=== PATIENT | female | born 1995 | race Caucasian/White ===

== ENCOUNTER 2022-07-06 04:08 | Observation (INO) | payer BC, MEDICAID, SELFPAY ==
[2022-07-06] VITALS (9 sets, daily range): BP systolic 106–165; BP diastolic 58–90; PULSE 89–118; RESP 15–31; TEMP 36.6–36.9; O2SAT 93–100
--- NOTE | 2022-07-06 | DI.US_ITS ---
APPROVED REPORT EXAM: Comprehensive 2D, Doppler, and color-flow Echocardiogram Patient Location: In-Patient Room/Bed: 205 Associate Principal: Gabrielle Stock RDCS (AE) Indications: PE, Evaluate for RV strain Other Information Study Quality: Fair. Technically limited study due to body habitus exam done bedside. Conclusion Technically limited study Mild concentric left ventricular hypertrophy. Left ventricular systolic function and wall motion tripp ears normal. EF is 58% Right ventricle is borderline dilated. Right ventricular systolic function appears normal Both atria are normal in size There is no structural or hemodynamically significant valvular disease Estimated right ventricular systolic pressure is 34 mmHg Wall motion Left Ventricle The left ventricle is normal size. The left ventricular systolic function is normal. The left ventric ular ejection fraction is within the normal range. Mild concentric left ventricular hypertrophy. Ther e is normal LV segmental wall motion. There is no ventricular septal defect visualized. LVEF is 58%. Right Ventricle Right ventricle is borderline dilated. Right ventricular systolic function is grossly normal. The RVS P is 33.8 mmHg. Atria The left atrium size is normal. The right atrium size is normal. The interatrial septum is intact wit h no evidence for an atrial septal defect. Aortic Valve The aortic valve is normal in structure. Aortic valve is trileaflet. There is no aortic valvular sten osis. No aortic regurgitation is present. Mitral Valve The mitral valve is normal in structure. No evidence of mitral valve stenosis. Trace mitral regurgita tion. Tricuspid Valve The tricuspid valve is normal in structure. There is no tricuspid valve stenosis. Trace tricuspid reg urgitation. Pulmonic Valve Pulmonic valve is not well visualized. There is no pulmonic valvular stenosis. There is no pulmonic v alvular regurgitation. Great Vessels The aortic root is normal in size. Ascending aorta is not well visualized. IVC is normal in size and collapses >50% with inspiration. Pericardium There is no pericardial effusion. Technically limited sub costal imaging. 2D Dimensions IVSD d PLAX 1.12 cm F: 0.6-1.0 LV Vol A2C d MOD 152.6 mL LVPW d PLAX 1.10 cm F: 0.6 - 1.0 LV Vol A4C d MOD 115.1 mL LVID d PLAX 4.07 cm F: 3.8 - 5.2 LV EF A4C MOD 54.1 % LVDs 2.70 cm F: 2.2 - 3.5 LV EF A2C MOD 55.4 % Ao Root d 2.81 cm F: 2.7 - 3.3 LV EF Biplane MOD 55.6 % RA Area A4C 19.19 cm2 SV 76.15 mL RA Vol/ BSA A4C s A-L 20.4 mL/m2 SV Index 28.36 mL/m2 LV EF Teichholz 61.6 % LVEF (Aguillon's) 55.59 % F: 54 - 74 LV Volume 94.00 mL F: 46 - 106 LV Volume Index 34.94 mL/m2 F: 29 - 61 LV Vol Biplane MOD 137.0 mL FS 32.65 % LV Diastology MV E' medial 0.098 (>0.07 m/s) E/A Ratio 1.0 LV E/e MED 8.50 (<14) MV E Vmax 0.83 (0.4-1.3 m/s) MV E' lateral 0.116 (>0.1 m/s) MV A Vmax 0.85 (0.4-1.3 m/s) LV E/e LAT 7.15 (<14) MV E/A Ratio 0.98 MV E/E' medial 8.50 MV E/E' lateral 7.16 Aortic Valve LVOT Area 3.35 cm2 AoV Area Vmax 2.26 cm2 LVOT Vmax 1.03 m/s AoV Area/ BSA (Vmax) 0.84 cm2/m2 LVOT Mean Turner. 0.67 m/s LINUS Mean Turner. 2.04 cm2 LVOT Peak Grad 4.2 mmHg LINUS Mean Turner. Index 0.76 cm2/m2 LVOT Mean Grad 2.1 mmHg LVOT VTI 0.184 m LVOT Diam s 2.05 cm AoV Vmax 1.52 m/s Velocity Ratio 0.68 AoV Mean Turner. 1.09 m/s AoV Peak Grad 9.2 mmHg LVOT SV 61.41 mL AoV Mean Grad 5.2 mmHg AoV VTI 0.249 m AoV Area VTI 2.46 cm2 AoV Area/ BSA (VTI) 0.92 cm/m2 Mitral Valve MV DT 398 (160-240 msec) MV PHT 116 msec MV Area PHT 1.90 cm2 MV VTI 0.199 m MV Area VTI 3.09 (4.0-6.0 cm2) Pulmonary Valve PV Vmax 1.15 (0.5-1.5 m/s) RVOT Peak Gr. 3.54 mmHg PV Peak Grad 5.3 mmHg RVOT Mean Gr. 1.60 mmHg PV Mean Grad 2.6 mmHg RVOT VTI 0.179 m PV VTI 0.218 m RVOT Vmax 0.94 m/s Tricuspid Valve TR Peak Grad 30.7 mmHg TR Vmax 2.77 m/s RA Pressure 3.00 mmHg RVSP (TR) 33.8 mmHg
--- NOTE | 2022-07-06 | DI.US_ITS ---
Exam(s) US EXTREMITY VENOUS BI EXAM: US EXTREMITY VENOUS BI CLINICAL HISTORY: PE; r/o DVT TECHNIQUE: Grayscale, color, and doppler imaging of the deep venous system of both lower extremities was performed. COMPARISON: US US ECHOCARDIOGRAM from 07/06/2022 FINDINGS: There is no evidence of intraluminal thrombus and there is normal compression and augmentation demons trated within the common femoral veins, femoral veins, and popliteal veins of both lower extremities. In the calves the interrogated veins also exhibit normal compression/ augmentation properties. The greater saphenous veins also appear patent as do the saphenofemoral junctions bilaterally.. IMPRESSION: 1. No ultrasound evidence of DVT in either lower extremity. DATA REPOSITORY:
--- NOTE | 2022-07-06 04:00 | RT.EKG_ITS ---
APPROVED REPORT Exam: Resting ECG Reason for Exam: Chest Pain Patient Location: E HR:108 bpm ECG Measurements Heart Rate 108 AXIS LA 161 P 36 QRSd 92 QRS 29 QT 353 T 15 QTc 473 Conclusion Sinus tachycardia...rate> 99 Probable left atrial enlargement...P >50mS, <-0.10mV V1. Sinus. Normal axis. No STEMI. I have reviewed and interpreted ECG and agree with software generated interpretation.
--- NOTE | 2022-07-06 04:13 | ED.GENADUL_ITS ---
Discharge Plan Disposition Patient Disposition: Admit to [facility] Condition: Stable Discharge Details Clinical Impression: Bilateral pulmonary embolism Admit Date/Time: 07/06/22 06:40 Admit Provider: Shawn Helton Attending Provider: Shawn Helton Primary Care Provider: Isabel Kaminski ED Provider: Maureen Jones Discharge Data Discharge Date/Time-TO BE ENTERED AT DEPARTURE: 07/06/22 08:03 Medical Decision Making 0420 -- 27-year-old female with a history of obesity, anxiety, depression and ADHD who presents with 3 days of left-sided pleuritic back and chest pain. Heart rate elevated to 110s. She is afebrile. Oxygen saturation within normal limits. EKG notes a rate of 108, sinus, normal axis, no STEMI. Heart rate has improved to 90s during my evaluation. Her left chest is also tender to palpation making muscle strain a possible diagnosis. Considering her tachycardia and pleuritic pain, consider PE. Patient is agreeable with plan for CT chest. Will obtain screening labs, give IV Tylenol, fluids and reassess. Se rum negative. 0550 --labs and imaging reviewed. White blood cell count 15. Normal elect rolytes. Creatinine 1.2. Troponin negative. CT notes: IMPRESSION: 1. Bilateral pulmonary emboli; see details above. No evidence of right heart strain. Study significantly degraded by respiratory motion artifact. 2. Small pulmonary infarcts in the left lower lobe, with a trace left pleural effusion. In the setting of bilateral PEs with evidence of small infarcts, will admit patient for observation. Dose of Lovenox subcu ordered. Case discussed with Dr. Helton who accepts patient for admission. Lovenox subcu ordered. Patient and parents informed of plan. Patient has remained hemodynamically stable with normal oxygen saturation. Medical Records Medical records reviewed: Yes I reviewed the patient's medical records. Imaging Data Radiologic Study: Radiologist's impression: CTA Chest With Contrast Exam date and time: 07/06/2022 5:00 AM Age: 27 years old Clinical indication: Left-sided; Patient HX: L sided pleurtic chest pain, R/O pe TECHNIQUE: Imaging protocol: Computed tomographic angiography of the chest with contrast. 3D rendering (Not supervised by radiologist): MIP and/or 3D reconstructed images were created by the technologist. Radiation optimization: All CT scans at this facility use at least one of these dose optimization techniques: automated exposure control; mA and/or kV adjustment per patient size (includes targeted exams where dose is matched to clinical indication); or iterative reconstruction. Contrast material: OMNIPAQUE 350; Contrast volume: 125 ml; Contrast route: INTRAVENOUS (IV);? COMPARISON: No relevant prior studies available. FINDINGS: Limitations: Image quality is significantly degraded by respiratory motion artifact. Pulmonary arteries: Filling defects are identified within multiple segmental and subsegmental pulmonary arterial branches in both lower lobes and the right middle lobe, compatible with pulmonary emboli. A filling defect is also seen within the right upper lobe pulmonary artery. There is no large central pulmonary embolism. The main pulmonary artery is normal in caliber. Aorta: Normal in caliber. Lungs: Respiratory motion artifact limits evaluation of the lung parenchyma. Small patchy alveolar opacities are noted in the posterior/inferior left lower lobe, nonspecific though in the setting of pulmonary emboli presumed to represent pulmonary infarcts. The right lung is essentially clear. The trachea and central main airways are patent and normal in caliber. Pleural spaces: Trace left pleural effusion. No pneumothorax. An azygos fissure is incidentally noted in the medial right upper lobe, a normal anatomic variant. Heart: Heart size is normal. There is no bowing of the interventricular septum and no reflux of contrast into the inferior vena cava. The RV/LV ratio is 0.8:1. No coronary artery calcifications are visible. There is no pericardial effusion. Lymph nodes: Unremarkable. No pathologically enlarged mediastinal, hilar, or axillary lymph nodes. Bones/joints: Mild degenerative changes. No suspicious osseous lesions. Soft tissues: Unremarkable. Other findings: Cholelithiasis. IMPRESSION: 1. Bilateral pulmonary emboli; see details above. No evidence of right heart strain. Study significantly degraded by respiratory motion artifact. 2. Small pulmonary infarcts in the left lower lobe, with a trace left pleural effusion. Lab Data Lab results reviewed: Yes I reviewed the patient's lab results. Labs: Laboratory Tests Range/Units 07/06/22 07/06/22 07/06/22 04:20 04:20 04:20 WBC (4.4-10.8) 10^3/uL 15.56 H RBC (3.93-5.22) 10^6/uL 5.43 H Hgb (11.2-15.7) g/dL 14.4 Hct (36.0-46.0) % 45.6 MCV (80-95) fL 84 MCH (27.0-33.0) pg 26.5 L MCHC (32.0-36.0) % 31.6 L RDW (11.7-14.6) % 13.4 Plt Count (130-400) 10^3/uL 376 MPV (8.0-11.0) fL 9.1 Immature Gran % 0.3 Neutrophils % 68.8 Lymphocytes % 20.5 Monocytes % 8.1 Eosinophils % 1.5 Basophils % 0.8 Nucleated RBC % (0.0-0.3) % 0.0 Absolute Neutrophils (1.2-6.7) 10^3/uL 10.71 H Absolute Lymphocytes (1.2-3.4) 10^3/uL 3.19 Absolute Monocytes (0.1-0.8) 10^3/uL 1.26 H Absolute Eosinophils (0.0-0.7) 10^3/uL 0.23 Absolute Basophils (0.0-0.2) 10^3/uL 0.12 Sodium (136-145) mmol/L 137 Potassium (3.5-5.1) mmol/L 4.1 Chloride (98-107) mmol/L 102 Carbon Dioxide (21.0-32.0) mmol/L 28.1 Anion Gap (3-11) mmol/L 6.9 BUN (7-18) mg/dL 16 Creatinine (0.55-1.02) mg/dL 1.2 H Est GFR (CKD-EPI 2020) (mL/min/1.73m2) 64.02 Glucose (74-106) mg/dL 107 H Calcium (8.5-10.1) mg/dL 9.3 Magnesium (1.8-2.4) mg/dL 2.1 Total Bilirubin (0.2-1.0) mg/dL 0.6 AST (15-37) U/L 22 ALT (14-59) U/L 33 Alkaline Phosphatase (46-116) U/L 98 Troponin I (<or=60) ng/L < 50 Total Protein (6.4-8.2) g/dL 8.0 Albumin (3.4-5.0) g/dL 3.7 Lipase (73-393) U/L Serum HCG, Qual Negative Range/Units 01/17/23 04:20 WBC (4.4-10.8) 10^3/uL RBC (3.93-5.22) 10^6/uL Hgb (11.2-15.7) g/dL Hct (36.0-46.0) % MCV (80-95) fL MCH (27.0-33.0) pg MCHC (32.0-36.0) % RDW (11.7-14.6) % Plt Count (130-400) 10^3/uL MPV (8.0-11.0) fL Immature Gran % Neutrophils % Lymphocytes % Monocytes % Eosinophils % Basophils % Nucleated RBC % (0.0-0.3) % Absolute Neutrophils (1.2-6.7) 10^3/uL Absolute Lymphocytes (1.2-3.4) 10^3/uL Absolute Monocytes (0.1-0.8) 10^3/uL Absolute Eosinophils (0.0-0.7) 10^3/uL Absolute Basophils (0.0-0.2) 10^3/uL Sodium (136-145) mmol/L Potassium (3.5-5.1) mmol/L Chloride (98-107) mmol/L Carbon Dioxide (21.0-32.0) mmol/L Anion Gap (3-11) mmol/L BUN (7-18) mg/dL Creatinine (0.55-1.02) mg/dL Est GFR (CKD-EPI 2020) (mL/min/1.73m2) Glucose (74-106) mg/dL Calcium (8.5-10.1) mg/dL Magnesium (1.8-2.4) mg/dL Total Bilirubin (0.2-1.0) mg/dL AST (15-37) U/L ALT (14-59) U/L Alkaline Phosphatase (46-116) U/L Troponin I (<or=60) ng/L Total Protein (6.4-8.2) g/dL Albumin (3.4-5.0) g/dL Lipase (73-393) U/L 114 Serum HCG, Qual ECG Data Attestation: I personally reviewed and interpreted this ECG (s) as follows: Interpretation: rate of 108, sinus, normal axis, no stemi. HPI General Mode of arrival: ambulatory . Date/Time Provider Initiated Documentation: 07/06/22 04:12 . Limitations to Documentation: no limitations . Information obtained by: patient . HPI Narrative: Patient is a 27-year-old female with a history of morbid obesity, anxiety, depr ession and ADHD presents for 3 days of left-sided back and rib pain now progressing to the left side of her chest that is worse with taking a deep breath. Patient states she did shovel outside a few days ago so she thought she pulled a muscle. She states the pain started in her left lateral ribs and then radiated to her left mid back 3 days ago. She states the pain awoke her from sleep early this morning with pain radiating to her left chest. She states the pain has hurt with deep breath for the past 3 days. She last took 400 mg of Advil 1 hour prior to arrival with some improvement. She does also admit to a cough with occasional clear sputum but states it is mostly been dry with chest congestion. She denies any fever, difficulty breathing, nausea, vomiting or dizziness. Patient states her sister in August 2021 from a pulmonary embolism. She states the provoking factor was control. Patient states she herself had testing for blood clotting disorders and was negative. Patient states she is not taking any control. Patient does admit that she has had left-sided calf pain earlier this week which has since resolved. Patient denies any recent travel, recent surgeries. Related Data Home Medications Medication Instructions Recorded Confirmed bupropion HCl 300 mg 24 hr tablet, 300 mg PO DAILY 07/06/22 07/06/22 extended release diazepam 2 mg tablet 2 mg PO DAILY PRN PRN 07/06/22 07/06/22 lamotrigine 100 mg tablet 100 mg PO DAILY 07/06/22 07/06/22 lisdexamfetamine 60 mg capsule 60 mg PO DAILY 07/06/22 07/06/22 (Vyvanse) pantoprazole 20 mg tablet,delayed 20 mg PO DAILY 07/06/22 07/06/22 release propranolol 20 mg tablet 20 mg DAILY 07/06/22 07/06/22 apixaban 5 mg (74 tabs) tablets in 5 mg PO ONCE #74 dose pk 07/07/22 a dose pack (Eliquis DVT-PE Treat 30D Start) Previous Rx's Medication Instructions Recorded apixaban 5 mg (74 tabs) tablets in 5 mg PO ONCE #74 dose pk 07/07/22 a dose pack (Eliquis DVT-PE Treat 30D Start) Allergies Allergy/AdvReac Type Severity Reaction Status Date / Time amoxicillin Allergy Intermediate Skin Rash Unverified 07/06/22 04:30 General Stated Complaint: Chest Pain AMANDA: 3 Review of Systems All systems reviewed & are unremarkable except as noted in HPI and below Constitutional Constitutional: Reports as per HPI, Denies chills and Denies fever(s) Eyes Eyes: Denies blurry vision ENT Ears, Nose, Mouth, and Throat: Denies dizziness, Denies sore throat and Denies throat swelling Cardiovascular Cardiovascular: Reports chest pain and Denies dyspnea Respiratory Respiratory: Denies cough and Denies dyspnea Gastrointestinal Gastrointestinal: Denies abdominal pain, Denies diarrhea and Denies vomiting Genitourinary Genitourinary: Denies hematuria and Denies dysuria Musculoskeletal Musculoskeletal: Reports back pain and Denies numbness Integumentary/Breasts Skin/Breast: Denies lesions and Denies rash Neurologic Neurologic: Denies dizziness, Denies localized weakness and Denies numbness Allergic/Immunologic Allergic/Immunologic: Denies throat swelling PFSH All Active Problems (Updated 07/08/22 @ 00:05 by ANNA SOTO) Pulmonary hypertension (Acute) Pulmonary infarct (Acute) Amenorrhea (Acute) Bilateral pulmonary embolism (Acute) Medical History ADHD Anxiety Depression Surgical History History of knee surgery Social History Smoking/Tobacco Use Status: Never Smoking risk assessment performed?: Yes Alcohol Intake: never Drug use: Never Substance use type: does not use Do you feel safe at home: Yes Exam Const General: cooperative and anxious Orientation: alert, awake and oriented x3 HENMT Head: normal to inspection Face and sinus: normal facial exam Eyes General: appearance normal, both eyes and all related structures Pupils: PERRL EOM: EOM intact bilaterally Neck Neck: normal visual inspection and No submandibular swelling Lymphatic: no lymphadenopathy noted Chest Chest: normal inspection of the chest and no tenderness Chest/axillae images: 1. Tenderness to palpation. No rash or lesions. Resp Effort & Inspection: normal respiratory effort and able to speak in complete sentences Auscultation: clear to auscultation bilaterally Cardio Rate: tachycardic Rhythm: regular rhythm GI Inspection: normal to inspection and obesity Palpation: soft, not firm, not rigid and nontender Auscultation: hypoactive bowel sounds Back/Spine/Pelvis Thoracic/Lumbar Spine: thoracic and lumbar spine normal to inspection Back/spine/pelvis image: 1. Tenderness to palpation. No rash or lesions. Skin General skin exam: no rashes or lesions noted Neuro General: patient alert, patient awake and patient oriented x3 Cognition: normal cognition Speech: speech normal Motor: muscle tone normal throughout Sensory Exam: no sensory deficits noted Extrem General: normal to inspection, full ROM, capillary refill normal, no calf tenderness bilaterally and no edema Psych Appearance: grossly normal Mental Status: mental status grossly normal Speech and Movement: speech and movement normal Affect: normal affect
--- NOTE | 2022-07-06 04:30 | DI.CT_ITS ---
Exam(s) CT CHEST PE CTA EXAM: CT CHEST PE CTA CLINICAL HISTORY: L sided pleurtic chest pain, r/o PE. TECHNIQUE: Imaging Protocol: CT angiography of the chest was performed using pulmonary embolus justin col. Multi planar reconstructions were performed. CONTRAST MATERIAL: Intravenous: Omnipaque 350 Contrast volume: 100 cc COMPARISON: No exams were available for comparison FINDINGS: CHEST: PULMONARY ARTERIES: There are extensive bilateral pulmonary emboli involving all lobes both lungs. N o central saddle embolus evident. No evidence of pulmonary infarction but there is a small left pleu ral effusion. LUNGS: There are no infiltrates nor evidence of pulmonary infarction.. Small left pleural effusion. Incidentally noted is an accessory azygos lobe on the right side MEDIASTINUM: There is no hilar nor mediastinal adenopathy. Visualized thyroid unremarkable. CARDIAC: Heart size is upper normal. There is no pericardial effusion.Caliber of the thoracic aorta is within normal limits. No evidence of aortic dissection. There is no significant shift of the inte rventricular septum. PARTIALLY VISUALIZED UPPERMOST ABDOMEN: No obvious findings OSSEOUS: No significant osseous lesions.. IMPRESSION: 1. Extensive bilateral pulmonary emboli involving all lobes of both lungs..No obvious pulmonary infar ct although there is a small left pleural effusion noted and mild increased markings in the posterior basal segment of the left lower lobe. These left lower lobe findings may indicate early infarct and /or concomitant infectious process. 2. No obvious right heart strain. First read by [facility]. RADIATION DOSE DELIVERED: 823.33mGy.cm Total DLP DATA REPOSITORY: All CT scans at this facility are submitted to the National Radiology Data Registry (NRDR) Dose Index Registry (DIR) with the [employer] ([employer]). RADIATION OPTIMIZATION: All CT scans at this facility use at least one of these dose optimization te chniques: automated exposure control; mA and/or kV adjustment per patient size (includes targeted exa ms where dose is matched to clinical indication); or iterative reconstruction.
[2022-07-06] MEDS: ACETAMINOPHEN 1,000 MG/100 ML BTL 400 MG IVPB (04:45)
[2022-07-06] MEDS: Normal Saline 1,000 ML 1000 ML IV (04:45)
[2022-07-06 04:48] LABS: Abs Immature Grans 0.05 10^3/uL (0.0-0.06); Absolute Lymphocyte Count 3.19 10^3/uL (1.2-3.4); Absolute Monocyte Count 1.26 10^3/uL (0.1-0.8); Basophils % 0.8; Eosinophils % 1.5; HCT 45.6 % (36.0-46.0); HGB 14.4 g/dL (11.2-15.7); Immature Grans % 0.3; Lymphocytes % 20.5; MCH 26.5 pg (27.0-33.0); MCHC 31.6 % (32.0-36.0); MCV 84 fL (80-95); MPV 9.1 fL (8.0-11.0); Monocytes % 8.1; Neutrophils % 68.8; Platelet Count 376 10^3/uL (130-400); RBC 5.43 10^6/uL (3.93-5.22); RDW 13.4 % (11.7-14.6); RDW-SD 40.9 fL; WBC 15.56 10^3/uL (4.4-10.8)
[2022-07-06 04:49] LABS: Absolute Basophil Count 0.12 10^3/uL (0.0-0.2); Absolute Eosinophil Count 0.23 10^3/uL (0.0-0.7); Absolute Neutrophil Count 10.71 10^3/uL (1.2-6.7)
[2022-07-06 04:51] LABS: HCG Qual (Serum) Negative
[2022-07-06 05:04] LABS: ALT 33 U/L (14-59); AST 22 U/L (15-37); Albumin 3.7 g/dL (3.4-5.0); Alkaline Phosphatase 98 U/L (46-116); Anion Gap 6.9 mmol/L (3-11); BUN 16 mg/dL (7-18); Bilirubin, Total 0.6 mg/dL (0.2-1.0); CO2 28.1 mmol/L (21.0-32.0); CREATININE 1.2 mg/dL (0.55-1.02); Calcium 9.3 mg/dL (8.5-10.1); Chloride 102 mmol/L (98-107); Estimated GFR 64.02 (mL/min/1.73m2); Glucose 107 mg/dL (74-106); Magnesium 2.1 mg/dL (1.8-2.4); Potassium 4.1 mmol/L (3.5-5.1); Sodium 137 mmol/L (136-145); Troponin I < 50 ng/L (<or=60)
[2022-07-06] MEDS: Omnipaque 350 MG/ML 100 ML BTL IJ (05:09)
[2022-07-06] MEDS: Omnipaque 350 MG/ML 50 ML BTL IJ (05:16)
[2022-07-06] MEDS: Normal Saline Flush 10 ML SYR IVP ×2 (05:18→16:05)
[2022-07-06] MEDS: Normal Saline - Diluent 50 ML VIAL IJ (05:19)
[2022-07-06 05:28] LABS: Lipase 114 U/L (73-393)
--- NOTE | 2022-07-06 05:44 | DI.VRAD_ITS ---
Addendum created by Arabella Blackwell MD on 07/06/2022 5:44:40 AM EST: THIS REPORT CONTAINS FINDINGS THAT MAY BE CRITICAL TO PATIENT CARE. The findings were verbally communicated via telephone conference at 5:44 AM EST on 07/06/[address] Jones. The findings were acknowledged and understood. Initial report created on 07/06/2022 5:44:24 AM EST: PROCEDURE INFORMATION: Exam: CTA Chest With Contrast Exam date and time: 07/06/2022 5:00 AM Age: 27 years old Clinical indication: Left-sided; Patient HX: L sided pleurtic chest pain, R/O pe TECHNIQUE: Imaging protocol: Computed tomographic angiography of the chest with contrast. 3D rendering (Not supervised by radiologist): MIP and/or 3D reconstructed images were created by the technologist. Radiation optimization: All CT scans at this facility use at least one of these dose optimization techniques: automated exposure control; mA and/or kV adjustment per patient size (includes targeted exams where dose is matched to clinical indication); or iterative reconstruction. Contrast material: OMNIPAQUE 350; Contrast volume: 125 ml; Contrast route: INTRAVENOUS (IV); COMPARISON: No relevant prior studies available. FINDINGS: Limitations: Image quality is significantly degraded by respiratory motion artifact. Pulmonary arteries: Filling defects are identified within multiple segmental and subsegmental pulmonary arterial branches in both lower lobes and the right middle lobe, compatible with pulmonary emboli. A filling defect is also seen within the right upper lobe pulmonary artery. There is no large central pulmonary embolism. The main pulmonary artery is normal in caliber. Aorta: Normal in caliber. Lungs: Respiratory motion artifact limits evaluation of the lung parenchyma. Small patchy alveolar opacities are noted in the posterior/inferior left lower lobe, nonspecific though in the setting of pulmonary emboli presumed to represent pulmonary infarcts. The right lung is essentially clear. The trachea and central main airways are patent and normal in caliber. Pleural spaces: Trace left pleural effusion. No pneumothorax. An azygos fissure is incidentally noted in the medial right upper lobe, a normal anatomic variant. Heart: Heart size is normal. There is no bowing of the interventricular septum and no reflux of contrast into the inferior vena cava. The RV/LV ratio is 0.8:1. No coronary artery calcifications are visible. There is no pericardial effusion. Lymph nodes: Unremarkable. No pathologically enlarged mediastinal, hilar, or axillary lymph nodes. Bones/joints: Mild degenerative changes. No suspicious osseous lesions. Soft tissues: Unremarkable. Other findings: Cholelithiasis. IMPRESSION: 1. Bilateral pulmonary emboli; see details above. No evidence of right heart strain. Study significantly degraded by respiratory motion artifact. 2. Small pulmonary infarcts in the left lower lobe, with a trace left pleural effusion. Dictated and Authenticated by: Arabella Blackwell MD. Ordering:JOAO Reddy MD
--- NOTE | 2022-07-06 06:23 | HPE_ITS ---
Date of service: 07/06/22 Time of Service: : Assessment and Plan Assessment and plan (1) Bilateral pulmonary embolism: Status: Acute Assessment and plan: Bilateral PE with substantial clot burden but no signs right heart strain and hemodynamically stable with satisfactory oxygenation. Precipitating cause not apparent at present. Despite report of negative hypercoaguable w/u the family history is striking and I would firstly obtain records on the work up. Would also benefit from limited screen for underlying occult malignancy, to include Mammo and Pap (no underlying lung lesions reported on CTA). I would agree with admission for perhaps 24 observation given the extent of disease but should be able to transition over to outpatient treatment with DOAC in short order. Will begin Lovenox 1mg/kg q12. Patient is extremely anxious and will give 1 mg Ativan now. History of Present Illness History of Present Illness Chief Complaint: CP Narrative: 27 year old female with h/o morbid obesity and family history of note for sister who last year from PE (was on OCP). Patient reports she had negative work up for hypercoaguable conditions (at [facility]). Here today with 3 days of pleuritic back and chest pain. No SOB, minimal dry cough. In ER evaluation of note for O2 sats in high 90s, sinus tach 110s, CTA showing multiple bilateral PE along with areas of infarct, no signs RV strain; EKG sinus tach w/o right axis deviation and negative troponin. I was asked to evaluate for admission. Patient does report that left calk has been painful, though not since CP d eveloped. Denies OCP. She is fairly sedentary but not bedbound and is up and down multiple times a day. No prolobgted immobiolization otherwise. Denies injury to LEs. No know underlying cancer, states normal Pap smear 2020, never had mammogram, not a smoker Review of Systems Narrative: per HPI PFSH All Active Problems Bilateral pulmonary embolism (Acute) Medical History ADHD Anxiety Depression Surgical History History of knee surgery Social History Smoking/Tobacco Use Status: Never Smoking risk assessment performed?: Yes Alcohol Intake: never Drug use: Never Substance use type: does not use Do you feel safe at home: Yes Meds Allergies and Home Medications Allergies Allergy/AdvReac Type Severity Reaction Status Date / Time amoxicillin Allergy Intermediate Skin Rash Unverified 07/06/22 04:30 Home Medications Medication Instructions Recorded Confirmed Type bupropion HCl 300 mg 24 hr tablet, 300 mg PO 1XD 07/06/22 07/06/22 History extended release diazepam 2 mg tablet 2 mg PO PRN PRN 07/06/22 07/06/22 History lamotrigine 100 mg tablet 100 mg PO 1XD 07/06/22 07/06/22 History lisdexamfetamine 60 mg capsule 60 mg PO 1XD 07/06/22 07/06/22 History (Vyvanse) pantoprazole 20 mg tablet,delayed 20 mg PO 1XD 07/06/22 07/06/22 History release propranolol 20 mg tablet 20 mg 1XD 07/06/22 07/06/22 History Exam Narrative Exam Narrative: 165/90, 118, 36.9, 31, 97% RA. HEENT atraumatic; neck supple, cannot read JVP; lungs clear; heart tachy/regualr w/o MRG and no RV heave; breasts w/o mass; abdomen soft and NT;extremities w/o edema, pulses 2+/=, mild left calf tenderness, w/o palpable cord, and positive Carlee's on left; neuro Ox3, lucid, moves all 4s Results Labs Result diagrams: 07/06/22 04:20 07/06/22 04:20 Labs: Laboratory Results - last 24 hr 07/06/22 07/06/22 07/06/22 04:20 04:20 04:20 WBC 15.56 H RBC 5.43 H Hgb 14.4 Hct 45.6 MCV 84 MCH 26.5 L MCHC 31.6 L RDW 13.4 Plt Count 376 MPV 9.1 Immature Gran % 0.3 Neutrophils % 68.8 Lymphocytes % 20.5 Monocytes % 8.1 Eosinophils % 1.5 Basophils % 0.8 Nucleated RBC % 0.0 Absolute Neutrophils 10.71 H Absolute Lymphocytes 3.19 Absolute Monocytes 1.26 H Absolute Eosinophils 0.23 Absolute Basophils 0.12 Sodium 137 Potassium 4.1 Chloride 102 Carbon Dioxide 28.1 Anion Gap 6.9 BUN 16 Creatinine 1.2 H Est GFR (CKD-EPI 2020) 64.02 Glucose 107 H Calcium 9.3 Magnesium 2.1 Total Bilirubin 0.6 AST 22 ALT 33 Alkaline Phosphatase 98 Troponin I < 50 Total Protein 8.0 Albumin 3.7 Lipase Serum HCG, Qual Negative 07/06/22 04:20 WBC RBC Hgb Hct MCV MCH MCHC RDW Plt Count MPV Immature Gran % Neutrophils % Lymphocytes % Monocytes % Eosinophils % Basophils % Nucleated RBC % Absolute Neutrophils Absolute Lymphocytes Absolute Monocytes Absolute Eosinophils Absolute Basophils Sodium Potassium Chloride Carbon Dioxide Anion Gap BUN Creatinine Est GFR (CKD-EPI 2020) Glucose Calcium Magnesium Total Bilirubin AST ALT Alkaline Phosphatase Troponin I Total Protein Albumin Lipase 114 Serum HCG, Qual Last Vital Signs Temp 36.9 C 07/06/22 04:12 Pulse 118 H 07/06/22 04:12 Resp 31 H 07/06/22 04:17 BP 165/90 H 07/06/22 04:12 Pulse Ox 97 07/06/22 04:12 Time Spent Time spent with Patient: 40-54 minutes Time was spent: preparing to see the patient(eg.review tests), obtaining and/or reviewing separately otained hiistory, ordering medications,tests, procedures, indepentently interpreting results and counseling the patient
[2022-07-06 06:30] LABS: PTT Activated 24.7 sec (21.0-27.5)
[2022-07-06] MEDS: LORazepam 1 MG TAB PO (07:43)
--- NOTE | 2022-07-06 08:32 | INITIAL_ITS ---
- If Service Date Differs Date of service: 07/06/22 Time of Service: 08:32 Care Management Initial Assess REASON FOR HOSPITALIZATION:: Bilateral pulmonary embolism PAST MEDICAL HISTORY/PAST SURGICAL HISTORY:: All Active Problems . Bilateral pulmonary embolism. (Acute Medical History . ADHD. Anxiety. Depression. Surgical History (Reviewed 07/06/22 @ 06:30 by Shawn Helton MDHistory of knee surgery PREVIOUS FUNCTIONAL STATUS/SOCIAL/FAMILY SUPPORTS:: Pricilla lives in [facility] with her parents and their 5 cats. 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 Pricilla's parents provide her with transportation, since she does not drive. Raysa is independent with her ADL's at baseline. CURRENT FUNCTIONAL STATUS:: Pricilla was lying in bed when CM met with her. She is awake, alert and easily engages in conversation. Her dad is visiting. Pricilla has no concerns at this time, she is ready to take a nap. Per Pricilla, she established care with a PCP in [place] when she was in college where she continues to receive primary care. ADVANCE DIRECTIVES:: None Has patient been provided with info about the portal/API?: Yes Did the patient sign up for the portal?: No CODE STATUS:: Full Code INSURANCE COVERAGE / FINANCIAL ISSUES:: [place] Medicaid CURRENT HOME/COMMUNITY SERVICES/EQUIPMENT:: None PRIMARY CARE PHYSICIAN:: Femi Irvin, [facility] [place] POTENTIAL DISCHARGE NEEDS:: Follow up appointments, discharge plan of care. PATIENT/FAMILY EDUCATION NEEDS:: Review discharge instructions, limitations, medications and plan to follow up with community providers. Discuss ask me three. TRANSPORTATION:: Via private vehicle with family. PLAN:: Anticipate, Pricilla will discharge home via private vehicle with family when medically ready per provider. She will follow up with her community providers and discharge plan of care as prescribed. CM will continue to support patient and her discharge planning needs.
[2022-07-06 08:45] LABS: Lab Add On Test DONE
[2022-07-06 08:55] LABS: NT-proBNP 163 pg/mL (<300)
[2022-07-06] MEDS: Pantoprazole 20 MG TABCR PO (08:58)
[2022-07-06] MEDS: lamoTRIgine 100 MG TAB PO (08:58)
[2022-07-06] MEDS: buPROPion-XL 150 MG TABCR 300 MG PO (08:59)
[2022-07-06] MEDS: Propranolol 20 MG TAB PO (08:59)
--- NOTE | 2022-07-06 09:18 | W.PULMCON ---
General Date Of Service Date of service: 07/06/22 Time of Service: 09:19 Reason for Consult: Bilateral Pulmonary Emboli Assessment and Plan Assessment and plan (1) Bilateral pulmonary embolism: Status: Acute (2) Pulmonary infarct: Status: Acute (3) Amenorrhea: Status: Acute Assessment and plan: This is a 27 yo admitted for bilateral PE. I do think an echo and DVT studies are warranted in her. There is no clear provoking incident for clot formation, and with her family history as mentioned likely does mean she will need life long anticoagulation. I did discuss this with her. She is currently on Lovenox, but this can be changed to Eliquis or the like. I have put in blood testing for genetic clotting diseases as well as an autoimmune screen. I do think she may have PCOS and it is possible that her recent excessive weight gain would result in excess estrogen which would put her at a higher risk for clotting. I did discuss this with gynecology as well. They recommend an pelvic ultrasound to assess the ovaries and to see her as an outpatient for further care. I did also send a testosterone level to add to the data and a TSH given the amenorrhea. Bilateral PE - recommend echo, DVT studies - ADELA, anti-DNA, factor V Leiden, antithrombin testing, prothrombin testing ordered - can put on Eliquis - if any pulmonary hypertension I will repeat echo in 3 months time - will see as an outpatient for follow up Pulmonary infarct - will repeat chest CT in 3 months prior to our follow up Amenorrhea - pelvic ultrasound - testosterone level - TSH - will refer to gynecology for outpatient follow up History of Present Illness Narrative: This is a 27 yo admitted for bilateral PE. Her CT scan shows a possible LLL infarct as well as a trace pleural effusion on the left. She does not have a clear provocation of the clot. She mentions that at times she can be sedentary, but never totally immobile. She states that on 07/03 she first noticed left leg pain and chest pains that initially she attributed to shovelling the day prior. She does mention chest congestion that she thought was a cold a few days preceding this. There is a concerning family history with her sister succumbing to a massive PE within the last year. She tells me that her PCP screened her for clotting issues but freedman not this any genetic testing was completed. She notes that recently she gained 100lbs in a short time period and developed hirsuitism. She has not had her period since 02/2022 and prior to that period she had not had a period in months. This is a big change as previously she was regular. She has been worried about PCOS and so her doctor ordered some 'tests' and they all returned normal. She is not short of breath currently. She does have left lower lung pain that is pleuritic. Review of Systems All systems reviewed & are unremarkable except as noted in HPI and below PFSH All Active Problems (Updated 07/06/22 @ 11:43 by Josefina Neal MD) Pulmonary infarct (Acute) Amenorrhea (Acute) Bilateral pulmonary embolism (Acute) Medical History ADHD Anxiety Depression Surgical History History of knee surgery Social History Smoking/Tobacco Use Status: Never Smoking risk assessment performed?: Yes Alcohol Intake: never Drug use: Never Substance use type: does not use Do you feel safe at home: Yes Visit Medication and Allergies Active Medications Generic Name Dose Route Start Last Admin Trade Name Freq PRN Reason Stop Dose Admin Acetaminophen 1,000 mg 07/06/22 06:40 Acetaminophen 500 Mg Tab PO Q6H PRN PRN Bupropion HCl 300 mg 07/06/22 08:30 07/06/22 08:59 Bupropion-Xl 150 Mg Tabcr PO 300 mg DAILY RENATO Administration Diazepam 2 mg 07/06/22 06:42 Diazepam 2 Mg Tab PO DAILY PRN PRN panic Dimethicone/Zinc Oxide 0 gm 07/06/22 06:40 Maranda Protect Cream 142 Gm Tube TP PRN PRN Enoxaparin Sodium 150 mg 07/06/22 18:00 Enoxaparin 150 Mg/Ml Syr SC Q12H RENATO Iohexol 100 ml 07/06/22 05:00 07/06/22 05:09 Omnipaque 350 Mg/Ml 100 Ml Btl IJ 08/05/22 23:59 100 ml DIRECTED RENATO Administration Iohexol 50 ml 07/06/22 06:00 07/06/22 05:16 Omnipaque 350 Mg/Ml 50 Ml Btl IJ 08/05/22 23:59 25 ml DIRECTED RENATO Administration Lamotrigine 100 mg 07/06/22 08:30 07/06/22 08:58 Lamotrigine 100 Mg Tab PO 100 mg DAILY RENATO Administration Lisdexamfetamine Dimesylate 60 mg 07/06/22 08:30 Lisdexamphetamine 60 Mg Cap PO DAILY RENATO Pantoprazole Sodium 20 mg 07/06/22 08:30 07/06/22 08:58 Pantoprazole 20 Mg Tabcr PO 20 mg DAILY@0730 RENATO Administration Propranolol HCl 20 mg 07/06/22 08:30 07/06/22 08:59 Propranolol 20 Mg Tab PO 20 mg DAILY RENATO Administration Sodium Chloride 0 ml 07/06/22 05:17 07/06/22 05:18 Normal Saline Flush 10 Ml Syr IVP 10 ml PRN PRN Administration Sodium Chloride 50 ml 07/06/22 05:30 07/06/22 05:19 Normal Saline - Diluent 50 Ml Vial IJ 50 ml .FOR DI USE RENATO Administration Allergies amoxicillin Allergy (Intermediate, Unverified 07/06/22 04:30) Skin Rash Exam Narrative Exam Narrative: Gen: NAD, normal respiratory effort, obese HENT: PERRL, hiruitism Chest: No respiratory distress, normal appearance of chest, clear to auscultation bilaterally, no crackles or wheezes, normal inspiratory effort Heart: regular rate and rhythym, no murmurs, rubs or gallops Abdomen: Non-distended, soft, non tender Extremities: No clubbing, edema, cyanosis, rashes Neuro: AAOx3 , non focal Psych: cooperative, appropriate mental affect Results Last Vital Signs Temp 36.9 C 07/06/22 04:12 Pulse 89 07/06/22 06:40 Resp 15 07/06/22 06:40 BP 142/88 H 07/06/22 06:40 Pulse Ox 100 07/06/22 06:40 Labs Result diagrams: 07/06/22 04:20 07/06/22 04:20 Labs: Laboratory Results - last 24 hr 07/06/22 07/06/22 07/06/22 04:20 04:20 04:20 WBC 15.56 H RBC 5.43 H Hgb 14.4 Hct 45.6 MCV 84 MCH 26.5 L MCHC 31.6 L RDW 13.4 Plt Count 376 MPV 9.1 Immature Gran % 0.3 Neutrophils % 68.8 Lymphocytes % 20.5 Monocytes % 8.1 Eosinophils % 1.5 Basophils % 0.8 Nucleated RBC % 0.0 Absolute Neutrophils 10.71 H Absolute Lymphocytes 3.19 Absolute Monocytes 1.26 H Absolute Eosinophils 0.23 Absolute Basophils 0.12 PT INR APTT Sodium 137 Potassium 4.1 Chloride 102 Carbon Dioxide 28.1 Anion Gap 6.9 BUN 16 Creatinine 1.2 H Est GFR (CKD-EPI 2020) 64.02 Glucose 107 H Calcium 9.3 Magnesium 2.1 Total Bilirubin 0.6 AST 22 ALT 33 Alkaline Phosphatase 98 Troponin I < 50 NT-Pro-B Natriuret Pep Total Protein 8.0 Albumin 3.7 Lipase Serum HCG, Qual Negative COVID-19 Source SARS-CoV-2 (PCR) Add-On Test Request 07/06/22 07/06/22 07/06/22 04:20 04:20 04:20 WBC RBC Hgb Hct MCV MCH MCHC RDW Plt Count MPV Immature Gran % Neutrophils % Lymphocytes % Monocytes % Eosinophils % Basophils % Nucleated RBC % Absolute Neutrophils Absolute Lymphocytes Absolute Monocytes Absolute Eosinophils Absolute Basophils PT 10.0 INR 1.0 APTT 24.7 Sodium Potassium Chloride Carbon Dioxide Anion Gap BUN Creatinine Est GFR (CKD-EPI 2020) Glucose Calcium Magnesium Total Bilirubin AST ALT Alkaline Phosphatase Troponin I NT-Pro-B Natriuret Pep Total Protein Albumin Lipase 114 Serum HCG, Qual COVID-19 Source SARS-CoV-2 (PCR) Add-On Test Request DONE 07/06/22 07/06/22 04:20 07:02 WBC RBC Hgb Hct MCV MCH MCHC RDW Plt Count MPV Immature Gran % Neutrophils % Lymphocytes % Monocytes % Eosinophils % Basophils % Nucleated RBC % Absolute Neutrophils Absolute Lymphocytes Absolute Monocytes Absolute Eosinophils Absolute Basophils PT INR APTT Sodium Potassium Chloride Carbon Dioxide Anion Gap BUN Creatinine Est GFR (CKD-EPI 2020) Glucose Calcium Magnesium Total Bilirubin AST ALT Alkaline Phosphatase Troponin I NT-Pro-B Natriuret Pep 163 Total Protein Albumin Lipase Serum HCG, Qual COVID-19 Source Cancelled SARS-CoV-2 (PCR) Cancelled Add-On Test Request Imaging CT scan - chest: report reviewed and image reviewed
--- NOTE | 2022-07-06 09:19 | W.PM.PROGNOT ---
Date of Service Date of service: 07/06/22 Time of Service: 09:19 Assessment and Plan Assessment and plan (1) Bilateral pulmonary embolism: Status: Acute Assessment and plan: Patient was started on low molecular weight heparin BID in the ED. It is safe to transition her to a direct oral anticoagulant ( DOAC) . As Eliquis or Apixaban does not require bridging with the LMWH, we will start Eliquis 10 mg PO Q 12 hours for 7 days and then transition to 5mg orally twice daily. Patient has a first degree relative younger then 45 years old who suffered a massive PE. She seems to have sustained an unprovoked PE at this time, as she does not smoke,not using contraceptive or hormonal therapy Pulmonology, was consulted and ordered workup for thrombophilia among other studies, and has also consulted with gynecology for further evaluation. (2) Pulmonary infarct: Status: Acute Assessment and plan: Pulmonary infarct possibly caused by the pulmonary embolism due to lack of blood flow. PE is getting treated as above (3) On deep vein thrombosis (DVT) prophylaxis: Status: Acute Assessment and plan: Patient is on anticoagulation therapy for pulmonary embolism (4) Amenorrhea: Status: Acute Assessment and plan: We will monitor testing ordered by pulmonology: Testosterone, TSH, pelvic ultrasound Gynecology follow-up (5) Discharge planning issues: Status: Acute Assessment and plan: Patient will be discharge home with no need when medically stable F/u with pulmonology and gynecology, and PCP Discussed with Dr. Monk Subjective Subjective Interval history since last seen: Patient reports feeling better, left sided stabbing/ spasm chest pain has decreased with deep breathing to 3 -5 over 10 and is less frequent She denies dizziness, weakness or lightheadedness, Denies difficulty breathing or air hunger, report unfrequent dry cough, denies hemoptysis Denies pain radiation to left arm, jaw, neck or abdomen Reports eating well, denies nausea, vomiting Reports voiding without difficulty Denies muscle weakness Exam Narrative Exam Narrative: Patient is cooperative, lying in bed when seen, mobile independent getting out of bed without difficulty. She speaks in full sentences No focal neuro deficits Clear lungs, decreased left lower lobe S1, S2, no murmur, pulses are present, cap refill to toes > 2 seconds Abdomen is large, non-tender, non-distended, bowel sounds are present No CVA tenderness No muscle weakness Objective Last Vital Signs Temp 98.4 F 07/06/22 04:12 Pulse 89 07/06/22 06:40 Resp 15 07/06/22 06:40 BP 142/88 H 07/06/22 06:40 Pulse Ox 100 07/06/22 06:40 Laboratory Results - last 24 hr 07/06/22 07/06/22 07/06/22 04:20 04:20 04:20 WBC 15.56 H RBC 5.43 H Hgb 14.4 Hct 45.6 MCV 84 MCH 26.5 L MCHC 31.6 L RDW 13.4 Plt Count 376 MPV 9.1 Immature Gran % 0.3 Neutrophils % 68.8 Lymphocytes % 20.5 Monocytes % 8.1 Eosinophils % 1.5 Basophils % 0.8 Nucleated RBC % 0.0 Absolute Neutrophils 10.71 H Absolute Lymphocytes 3.19 Absolute Monocytes 1.26 H Absolute Eosinophils 0.23 Absolute Basophils 0.12 PT INR APTT Sodium 137 Potassium 4.1 Chloride 102 Carbon Dioxide 28.1 Anion Gap 6.9 BUN 16 Creatinine 1.2 H Est GFR (CKD-EPI 2020) 64.02 Glucose 107 H Calcium 9.3 Magnesium 2.1 Total Bilirubin 0.6 AST 22 ALT 33 Alkaline Phosphatase 98 Troponin I < 50 NT-Pro-B Natriuret Pep Total Protein 8.0 Albumin 3.7 Lipase Serum HCG, Qual Negative COVID-19 Source SARS-CoV-2 (PCR) Add-On Test Request 07/06/22 07/06/22 07/06/22 04:20 04:20 04:20 WBC RBC Hgb Hct MCV MCH MCHC RDW Plt Count MPV Immature Gran % Neutrophils % Lymphocytes % Monocytes % Eosinophils % Basophils % Nucleated RBC % Absolute Neutrophils Absolute Lymphocytes Absolute Monocytes Absolute Eosinophils Absolute Basophils PT 10.0 INR 1.0 APTT 24.7 Sodium Potassium Chloride Carbon Dioxide Anion Gap BUN Creatinine Est GFR (CKD-EPI 2020) Glucose Calcium Magnesium Total Bilirubin AST ALT Alkaline Phosphatase Troponin I NT-Pro-B Natriuret Pep Total Protein Albumin Lipase 114 Serum HCG, Qual COVID-19 Source SARS-CoV-2 (PCR) Add-On Test Request DONE 07/06/22 07/06/22 04:20 07:02 WBC RBC Hgb Hct MCV MCH MCHC RDW Plt Count MPV Immature Gran % Neutrophils % Lymphocytes % Monocytes % Eosinophils % Basophils % Nucleated RBC % Absolute Neutrophils Absolute Lymphocytes Absolute Monocytes Absolute Eosinophils Absolute Basophils PT INR APTT Sodium Potassium Chloride Carbon Dioxide Anion Gap BUN Creatinine Est GFR (CKD-EPI 2020) Glucose Calcium Magnesium Total Bilirubin AST ALT Alkaline Phosphatase Troponin I NT-Pro-B Natriuret Pep 163 Total Protein Albumin Lipase Serum HCG, Qual COVID-19 Source Cancelled SARS-CoV-2 (PCR) Cancelled Add-On Test Request Time Spent with Patient Time Spent with Patient: >50 minutes Time was spent: preparing to see the patient(eg.review tests)
[2022-07-06] MEDS: Lisdexamphetamine 60 MG CAP PO (09:34)
[2022-07-06 09:54] LABS: Source Nasal/Nares
[2022-07-06 10:33] LABS: COVID-19 PCR Negative (Negative)
[2022-07-06] MEDS: Acetaminophen 500 MG TAB 1000 MG PO ×2 (11:47→18:03)
[2022-07-06 13:19] LABS: TSH (W/Ref FT4) 2.69 uIU/mL (0.36-3.74)
--- NOTE | 2022-07-06 14:26 | PHACLINREV_ITS ---
Pharmacy Admission Review - Admission Clinical Review (Last Reviewed 07/06/22 @ 06:30 by Shawn Helton MD) Pulmonary infarct (Acute) Amenorrhea (Acute) Bilateral pulmonary embolism (Acute) amoxicillin Allergy (Intermediate, Unverified 07/06/22 04:30) Skin Rash Resuscitation Status Full Code Height 5 ft 6 in Weight 181.437 kg - Renal Dosing Renal Dosing: BUN 16 mg/dL (7-18) 07/06/22 04:20 Creatinine 1.2 mg/dL (0.55-1.02) H 07/06/22 04:20 Medications needing adjustments: Reviewed (crcl >100, no adustments needed) - Anticoagulation Anticoagulation: Hgb 14.4 g/dL (11.2-15.7) 07/06/22 04:20 Hct 45.6 % (36.0-46.0) 07/06/22 04:20 Plt Count 376 10^3/uL (130-400) 07/06/22 04:20 INR 1.0 (0.9-1.1) 07/06/22 04:20 Creatinine 1.2 mg/dL (0.55-1.02) H 07/06/22 04:20 DVT Prophylaxis: Reviewed Medications: Enoxaparin Therapeutic Anticoagulation: Intervened Medications: Enoxaparin (therapeutic lovenox, indication: PE. dosed ~0.8 mg kg (150 mg) BID - reduced from 1 mg/kg d/t BMI >40 (per micromedex & uptodate, r ecommend dose cap at 150 mg)) - Opiate Usage Evaluate Pain Scale/Pains Meds: N/A - Relevant Labs Sodium 137 mmol/L (136-145) 07/06/22 04:20 Potassium 4.1 mmol/L (3.5-5.1) 07/06/22 04:20 Chloride 102 mmol/L (98-107) 07/06/22 04:20 Magnesium 2.1 mg/dL (1.8-2.4) 07/06/22 04:20 Electrolytes, C-Reactive P, ESR: Reviewed - DM Control DM Control: Glucose 107 mg/dL (74-106) H 07/06/22 04:20 DM Control: Reviewed - Cardiac Review Cardiac Review: Troponin I < 50 ng/L (<or=60) 07/06/22 04:20 NT-Pro-B Natriuret Pep 163 pg/mL (<300) 07/06/22 04:20 BP, HR, EF%: Reviewed - Qtc Review QTc: Reviewed (QTc = 473) - IV to PO Switch IV Medications: Reviewed (lovenox SubQ otherwise on PO meds -- switch lovenox to DOAC when appropriate) - Home Meds Home Med List reviewed: Reviewed Relevent Home Meds Not ordered & why?: home meds are ordered - Current meds Current Medication Order Review: Reviewed (Lovenox therapeutic dosing for bilateral PE, cause unclear at this point. Does have close family hx, sister last year from PE. Will likely need indefinite anticoagulation. Per [employer], best DOAC choice for BMI >40 is rivaroxaban or apixiban) Comments: Confirmed 180 mg given in ED this morning
[2022-07-06] MEDS: Apixaban 5 MG TAB 10 MG PO (18:04)
--- NOTE | 2022-07-07 | DI.US_ITS ---
Exam(s) US PELVIS TRANSVAGINAL EXAM: US PELVIS TRANSVAGINAL CLINICAL HISTORY: amenorrhia, ?PCOS TECHNIQUE: Ultrasound of the pelvis was performed both transabdominal and transvaginal. COMPARISON: CT CT CHEST PE CTA from 07/06/2022 US US EXTREMITY VENOUS BI from 07/06/2022 FINDINGS: UTERUS: Appears retroverted Measures 5.7 cm length x 5.5 cm AP x 5.4 cm wide. There are no uterine fibroids. Endometrial thickness measures 13 mm. There is no fluid in the endometrial canal. Subtle suggestion of mildly bicornuate configuration. CERVIX: There are no obvious nabothian cysts. Ovaries were not able to be seen on today's study. CUL-DE-SAC: No free fluid evident. IMPRESSION: 1. Ovaries were not able to be seen, this due to body habitus. 2. No uterine fibroids seen. 3. 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 DATA REPOSITORY:
[2022-07-07] MEDS: Apixaban 5 MG TAB 10 MG PO (06:04)
[2022-07-07] MEDS: Acetaminophen 500 MG TAB 1000 MG PO (06:37)
--- NOTE | 2022-07-07 07:12 | W.PULMPROG ---
Assessment and Plan Assessment and plan (1) Bilateral pulmonary embolism: Status: Acute (2) Pulmonary infarct: Status: Acute (3) Pulmonary hypertension: Status: Acute (4) Amenorrhea: Status: Acute Assessment and plan: This is a 27 yo admitted for bilateral PE. She has been started on Eliquis. I have put in blood testing for genetic clotting diseases as well as an autoimmune screen. I do think she may have PCOS and it is possible that her recent excessive weight gain would result in excess estrogen which would put her at a higher risk for clotting. I did discuss this with gynecology as well. They recommend an pelvic ultrasound to assess the ovaries and to see her as an outpatient for further care. I did also send a testosterone level to add to the data. Bilateral PE - ADELA, anti-DNA, factor V Leiden, antithrombin testing, prothrombin testing pending - continue Eliquis - will repeat echo in 3 months - will see as an outpatient for follow up Pulmonary infarct - will repeat chest CT in 3 months prior to our follow up Pulmonary Hypertension - will repeat echo in 3 months prior to our outpatient visit Amenorrhea - pelvic ultrasound - testosterone level pending - refered to gynecology for outpatient follow up General Date Of Service Date of service: 07/07/22 Time of Service: 07:12 Reason for Consult: Bilateral PE Subjective 24 Hour Events: Echo returned with RVSP 34mmHg, mild concentric left ventricular hypertrophy. DVT study negative Lovenox changed to Eliquis Note Note: Pricilla is feeling well today. She still has some pains and dyspnea. She complains of a headache. Pricilla had several questions and concerns, all of which were addressed today. Exam Narrative Exam Narrative: Gen:?NAD, normal respiratory effort, obese HENT:?PERRL, hiruitism Chest:?No respiratory distress, normal appearance of chest, clear to auscultation bilaterally, no crackles or wheezes, normal inspiratory effort Heart:?regular rate and rhythym, no murmurs, rubs or gallops Abdomen:?Non-distended, soft, non tender Extremities:?No clubbing, edema, cyanosis, rashes Neuro:?AAOx3 , non focal Psych:?cooperative, appropriate mental affect Objective Last Vital Signs Temp 36.6 C 07/06/22 22:30 Pulse 90 07/06/22 22:30 Resp 19 07/06/22 22:30 BP 158/63 H 07/06/22 22:30 Pulse Ox 93 07/06/22 22:30 Laboratory Results - last 24 hr 07/06/22 07/06/22 07/06/22 04:20 04:20 04:20 NT-Pro-B Natriuret Pep 163 TSH 2.69 COVID-19 Source SARS-CoV-2 (PCR) Add-On Test Request DONE 07/06/22 07/06/22 07:02 09:36 NT-Pro-B Natriuret Pep TSH COVID-19 Source Cancelled Nasal/Nares SARS-CoV-2 (PCR) Cancelled Negative Add-On Test Request Results Medications Medications: Active Medications Generic Name Dose Route Start Last Admin Trade Name Freq PRN Reason Stop Dose Admin Acetaminophen 1,000 mg 07/06/22 06:40 07/07/22 06:37 Acetaminophen 500 Mg Tab PO 1,000 mg Q6H PRN PRN Administration Apixaban 10 mg 07/06/22 18:00 07/07/22 06:04 Apixaban 5 Mg Tab PO 07/13/22 06:01 10 mg Q12H RENATO Administration Bupropion HCl 300 mg 07/06/22 08:30 07/06/22 08:59 Bupropion-Xl 150 Mg Tabcr PO 300 mg DAILY RENATO Administration Diazepam 2 mg 07/06/22 06:42 Diazepam 2 Mg Tab PO DAILY PRN PRN panic Dimethicone/Zinc Oxide 0 gm 07/06/22 06:40 Maranda Protect Cream 142 Gm Tube TP PRN PRN Iohexol 100 ml 07/06/22 05:00 07/06/22 05:09 Omnipaque 350 Mg/Ml 100 Ml Btl IJ 08/05/22 23:59 100 ml DIRECTED RENATO Administration Iohexol 50 ml 07/06/22 06:00 07/06/22 05:16 Omnipaque 350 Mg/Ml 50 Ml Btl IJ 08/05/22 23:59 25 ml DIRECTED RENATO Administration Lamotrigine 100 mg 07/06/22 08:30 07/06/22 08:58 Lamotrigine 100 Mg Tab PO 100 mg DAILY RENATO Administration Lisdexamfetamine Dimesylate 60 mg 07/06/22 08:30 07/06/22 09:34 Lisdexamphetamine 60 Mg Cap PO 60 mg DAILY RENATO Administration Pantoprazole Sodium 20 mg 07/06/22 08:30 07/06/22 08:58 Pantoprazole 20 Mg Tabcr PO 20 mg DAILY@0730 RENATO Administration Propranolol HCl 20 mg 07/06/22 08:30 07/06/22 08:59 Propranolol 20 Mg Tab PO 20 mg DAILY RENATO Administration Sodium Chloride 0 ml 07/06/22 05:17 07/06/22 16:05 Normal Saline Flush 10 Ml Syr IVP 10 ml PRN PRN Administration Sodium Chloride 50 ml 07/06/22 05:30 07/06/22 05:19 Normal Saline - Diluent 50 Ml Vial IJ 50 ml .FOR DI USE RENATO Administration Allergies amoxicillin Allergy (Intermediate, Unverified 07/06/22 04:30) Skin Rash Labs Result Diagrams: 07/06/22 04:20 07/06/22 04:20 Labs: Laboratory Tests Range/Units 07/06/22 07/06/22 07/06/22 04:20 04:20 04:20 WBC (4.4-10.8) 10^3/uL 15.56 H RBC (3.93-5.22) 10^6/uL 5.43 H Hgb (11.2-15.7) g/dL 14.4 Hct (36.0-46.0) % 45.6 MCV (80-95) fL 84 MCH (27.0-33.0) pg 26.5 L MCHC (32.0-36.0) % 31.6 L RDW (11.7-14.6) % 13.4 Plt Count (130-400) 10^3/uL 376 MPV (8.0-11.0) fL 9.1 Immature Gran % 0.3 Neutrophils % 68.8 Lymphocytes % 20.5 Monocytes % 8.1 Eosinophils % 1.5 Basophils % 0.8 Nucleated RBC % (0.0-0.3) % 0.0 Absolute Neutrophils (1.2-6.7) 10^3/uL 10.71 H Absolute Lymphocytes (1.2-3.4) 10^3/uL 3.19 Absolute Monocytes (0.1-0.8) 10^3/uL 1.26 H Absolute Eosinophils (0.0-0.7) 10^3/uL 0.23 Absolute Basophils (0.0-0.2) 10^3/uL 0.12 PT (9.3-11.0) sec INR (0.9-1.1) APTT (21.0-27.5) sec Sodium (136-145) mmol/L 137 Potassium (3.5-5.1) mmol/L 4.1 Chloride (98-107) mmol/L 102 Carbon Dioxide (21.0-32.0) mmol/L 28.1 Anion Gap (3-11) mmol/L 6.9 BUN (7-18) mg/dL 16 Creatinine (0.55-1.02) mg/dL 1.2 H Est GFR (CKD-EPI 2020) (mL/min/1.73m2) 64.02 Glucose (74-106) mg/dL 107 H Calcium (8.5-10.1) mg/dL 9.3 Magnesium (1.8-2.4) mg/dL 2.1 Total Bilirubin (0.2-1.0) mg/dL 0.6 AST (15-37) U/L 22 ALT (14-59) U/L 33 Alkaline Phosphatase (46-116) U/L 98 Troponin I (<or=60) ng/L < 50 NT-Pro-B Natriuret Pep (<300) pg/mL Total Protein (6.4-8.2) g/dL 8.0 Albumin (3.4-5.0) g/dL 3.7 Lipase (73-393) U/L TSH (0.36-3.74) uIU/mL Serum HCG, Qual Negative COVID-19 Source SARS-CoV-2 (PCR) Add-On Test Request Range/Units 07/06/22 07/06/22 07/06/22 04:20 04:20 04:20 WBC (4.4-10.8) 10^3/uL RBC (3.93-5.22) 10^6/uL Hgb (11.2-15.7) g/dL Hct (36.0-46.0) % MCV (80-95) fL MCH (27.0-33.0) pg MCHC (32.0-36.0) % RDW (11.7-14.6) % Plt Count (130-400) 10^3/uL MPV (8.0-11.0) fL Immature Gran % Neutrophils % Lymphocytes % Monocytes % Eosinophils % Basophils % Nucleated RBC % (0.0-0.3) % Absolute Neutrophils (1.2-6.7) 10^3/uL Absolute Lymphocytes (1.2-3.4) 10^3/uL Absolute Monocytes (0.1-0.8) 10^3/uL Absolute Eosinophils (0.0-0.7) 10^3/uL Absolute Basophils (0.0-0.2) 10^3/uL PT (9.3-11.0) sec 10.0 INR (0.9-1.1) 1.0 APTT (21.0-27.5) sec 24.7 Sodium (136-145) mmol/L Potassium (3.5-5.1) mmol/L Chloride (98-107) mmol/L Carbon Dioxide (21.0-32.0) mmol/L Anion Gap (3-11) mmol/L BUN (7-18) mg/dL Creatinine (0.55-1.02) mg/dL Est GFR (CKD-EPI 2020) (mL/min/1.73m2) Glucose (74-106) mg/dL Calcium (8.5-10.1) mg/dL Magnesium (1.8-2.4) mg/dL Total Bilirubin (0.2-1.0) mg/dL AST (15-37) U/L ALT (14-59) U/L Alkaline Phosphatase (46-116) U/L Troponin I (<or=60) ng/L NT-Pro-B Natriuret Pep (<300) pg/mL Total Protein (6.4-8.2) g/dL Albumin (3.4-5.0) g/dL Lipase (73-393) U/L 114 TSH (0.36-3.74) uIU/mL Serum HCG, Qual COVID-19 Source SARS-CoV-2 (PCR) Add-On Test Request DONE Range/Units 07/06/22 07/06/22 07/06/22 04:20 04:20 07:02 WBC (4.4-10.8) 10^3/uL RBC (3.93-5.22) 10^6/uL Hgb (11.2-15.7) g/dL Hct (36.0-46.0) % MCV (80-95) fL MCH (27.0-33.0) pg MCHC (32.0-36.0) % RDW (11.7-14.6) % Plt Count (130-400) 10^3/uL MPV (8.0-11.0) fL Immature Gran % Neutrophils % Lymphocytes % Monocytes % Eosinophils % Basophils % Nucleated RBC % (0.0-0.3) % Absolute Neutrophils (1.2-6.7) 10^3/uL Absolute Lymphocytes (1.2-3.4) 10^3/uL Absolute Monocytes (0.1-0.8) 10^3/uL Absolute Eosinophils (0.0-0.7) 10^3/uL Absolute Basophils (0.0-0.2) 10^3/uL PT (9.3-11.0) sec INR (0.9-1.1) APTT (21.0-27.5) sec Sodium (136-145) mmol/L Potassium (3.5-5.1) mmol/L Chloride (98-107) mmol/L Carbon Dioxide (21.0-32.0) mmol/L Anion Gap (3-11) mmol/L BUN (7-18) mg/dL Creatinine (0.55-1.02) mg/dL Est GFR (CKD-EPI 2020) (mL/min/1.73m2) Glucose (74-106) mg/dL Calcium (8.5-10.1) mg/dL Magnesium (1.8-2.4) mg/dL Total Bilirubin (0.2-1.0) mg/dL AST (15-37) U/L ALT (14-59) U/L Alkaline Phosphatase (46-116) U/L Troponin I (<or=60) ng/L NT-Pro-B Natriuret Pep (<300) pg/mL 163 Total Protein (6.4-8.2) g/dL Albumin (3.4-5.0) g/dL Lipase (73-393) U/L TSH (0.36-3.74) uIU/mL 2.69 Serum HCG, Qual COVID-19 Source Cancelled SARS-CoV-2 (PCR) Cancelled Add-On Test Request Range/Units 07/06/22 09:36 WBC (4.4-10.8) 10^3/uL RBC (3.93-5.22) 10^6/uL Hgb (11.2-15.7) g/dL Hct (36.0-46.0) % MCV (80-95) fL MCH (27.0-33.0) pg MCHC (32.0-36.0) % RDW (11.7-14.6) % Plt Count (130-400) 10^3/uL MPV (8.0-11.0) fL Immature Gran % Neutrophils % Lymphocytes % Monocytes % Eosinophils % Basophils % Nucleated RBC % (0.0-0.3) % Absolute Neutrophils (1.2-6.7) 10^3/uL Absolute Lymphocytes (1.2-3.4) 10^3/uL Absolute Monocytes (0.1-0.8) 10^3/uL Absolute Eosinophils (0.0-0.7) 10^3/uL Absolute Basophils (0.0-0.2) 10^3/uL PT (9.3-11.0) sec INR (0.9-1.1) APTT (21.0-27.5) sec Sodium (136-145) mmol/L Potassium (3.5-5.1) mmol/L Chloride (98-107) mmol/L Carbon Dioxide (21.0-32.0) mmol/L Anion Gap (3-11) mmol/L BUN (7-18) mg/dL Creatinine (0.55-1.02) mg/dL Est GFR (CKD-EPI 2020) (mL/min/1.73m2) Glucose (74-106) mg/dL Calcium (8.5-10.1) mg/dL Magnesium (1.8-2.4) mg/dL Total Bilirubin (0.2-1.0) mg/dL AST (15-37) U/L ALT (14-59) U/L Alkaline Phosphatase (46-116) U/L Troponin I (<or=60) ng/L NT-Pro-B Natriuret Pep (<300) pg/mL Total Protein (6.4-8.2) g/dL Albumin (3.4-5.0) g/dL Lipase (73-393) U/L TSH (0.36-3.74) uIU/mL Serum HCG, Qual COVID-19 Source Nasal/Nares SARS-CoV-2 (PCR) Negative Add-On Test Request
[2022-07-07 07:17] VITALS: BP 114/71; PULSE 90; RESP 18; TEMP 36.9; O2SAT 95
[2022-07-07] MEDS: Lisdexamphetamine 60 MG CAP PO (08:33)
[2022-07-07] MEDS: lamoTRIgine 100 MG TAB PO (08:33)
[2022-07-07] MEDS: Propranolol 20 MG TAB PO (08:33)
[2022-07-07] MEDS: buPROPion-XL 150 MG TABCR 300 MG PO (08:33)
[2022-07-07] MEDS: Pantoprazole 20 MG TABCR PO (08:34)
[2022-07-07] MEDS: Normal Saline Flush 10 ML SYR IVP (08:40)
--- NOTE | 2022-07-07 10:47 | CHAPLAIN ---
Pricilla was up in the chair watching tv when I visited this morning. She was very pleasant and told me she may be discharged today, she's waiting to here. Her mom is here to spend the day with her and that seemed important to Pricilla. I explained my role and offered support.
--- NOTE | 2022-07-07 11:04 | DSE_ITS ---
Date of service: 07/07/22 Time of Service: 11:05 DS: Diagnosis Discharge Diagnosis (1) Bilateral pulmonary embolism: Status: Acute (2) Pulmonary infarct: Status: Acute (3) Pulmonary hypertension: Status: Acute (4) Amenorrhea: Status: Acute Discharge Plan Disposition Patient Disposition: Home Condition: Improving Discharge Details Reason For Visit: PE Admit Date/Time: 07/06/22 06:40 Admit Provider: Shawn Helton Attending Provider: Shawn Helton Primary Care Provider: [facility] Course Hospital Course: 27-year-old female non-smoker who has a history of morbid obesity probable polycystic ovary syndrome there is a familial history of a sister who last year from massive pulmonary embolus. Sisters pulmonary embolus may have been provoked by use of oral contraceptives and frequent long distance travel. No other family history of hypercoagulable disorder. Patient presented with 3 days of pleuritic back and chest pain and exertional dyspnea. CT of the chest demonstrated extensive bilateral pulmonary emboli involving all lobes of both lungs small left pleural effusion with increased markings in the posterior basal segment left lower lobe possibly from pulmonary infarct. No obvious right heart strain on CTA of her chest. Nevertheless echocardiogram was performed and showed mild concentric LVH with normal left ventricular systolic function and an LVEF of 58%. Right ventricle is borderline dilated but right ventricular systolic function was normal and there was mild pulmonary hypertension with an RVSP of 34 mm. Venous duplex scan of her legs showed no DVT in her legs. Patient was started on Lovenox weight-based at 1 mg/kg subcutaneously every 12 hours. She got her first dose in the emergency department on the morning of 07/06/2022 however on the evening of 07/06/2022 she was converted to apixaban 10 mg twice a day. Pulmonary consultation was obtained with Dr. Josefina Nael see her consult note for details. Patient gave a history that she has had amenorrhea for about [address] Neal consult with [facility] per telephone consult and it was recommended patient have a pelvic ultrasound. Transvaginal pelvic ultrasound was ordered by Dr. Neal and was performed on 07/07/2021 the results of which are pending at this time. Dr. Neal ordered a thrombophilia work-up including ADELA titer, antidouble-stranded DNA antibody and Antithrombin III complex antibody as well as functional Antithrombin III level and Antithrombin III activity level and factor V Leiden mutation study. All of which are still pending at this time. Patient did well overnight had no hypoxemia and her tachycardia that she presented with resolved. Initially her heart rate was 118 bpm on admission and at discharge her heart rate was down in the 90s. She never had oxygen desaturation and did not require supplemental oxygen. On the morning discharge she was seen ambulating around the nursing floor with her mother with no exertional dyspnea or hypoxemia. She had some mild residual left-sided chest discomfort with deep breath or coughing. Patient was prescribed apixaban starter pack to begin at 10 mg twice a day for 7 days then decrease to 5 mg twice daily. Prescription was sent electronically to her pharmacy however they called and indicated they could not get the starter pack until tomorrow. Therefore the patient was sent home with 2 more doses of 10 mg. She had her morning dose of 10 mg prior to discharge and will get another dose tonight and has another dose for tomorrow morning sent home with her from our pharmacy. Patient is to follow-up with Dr. Neal in 3 months and will have a follow-up echocardiogram and a repeat CTA of her chest these will be ordered by Dr. Neal. Patient is advised to follow-up with her rail car repairman regarding her amenorrhea and get age-appropriate cancer screening. She was also advised to avoid use of NSAIDs or aspirin does increase her risk for bleeding while on apixaban. She was also advised that she will need to stay on anticoagulation treatment for lifetime. Home Meds and New Rx's Prescriptions: New Cricket DVT-PE Treat 30D Start 5 mg (74 tabs) tablets,dose pack 5 mg PO ONCE Qty: 74 0RF Continued lamotrigine 100 mg tablet 100 mg PO DAILY Label Comments: take 1 tablet by mouth once daily bupropion HCl 300 mg tablet extended release 24 hr 300 mg PO DAILY Label Comments: take 1 tablet by mouth once daily pantoprazole 20 mg tablet,delayed release (DR/EC) 20 mg PO DAILY Label Comments: take 1 tablet by mouth once daily Vyvanse 60 mg capsule 60 mg PO DAILY Label Comments: take 1 capsule by mouth every morning propranolol 20 mg tablet 20 mg DAILY Label Comments: take 1 tablet by mouth daily diazepam 2 mg tablet 2 mg PO DAILY PRN PRN Label Comments: take 1 tablet by mouth once daily if needed FOR PANIC Discharge Instructions Instructions: Apixaban (By mouth), Pulmonary Embolism (DC) Additional Instructions: avoid use of aspirin or NSAID'S while on apixaban. you may use Tylenol as needed for pain. Use of aspirin or nonsteroidal antiinflammatory agents such as naproxen or ibuprofen will increase your risks for bleeding. Avoid use of decongestant medications which increase your blood pressure and will worsen your ADHD. Your echocardiogram demonstrated normal heart function but you have evidence for concentric left ventricular hypertrophy and mild pulmonary hypertension. You should get a follow up echocardiogram in the next 6 months. Your hazardous substances scientist or your primary care provider can arrange this. For your amenorrhea you should be followed by a rail car repairman. You should discuss age appropriate screening tests w/ your PCP and your rail car repairman particularly given your pulmonary embolus; i.e. breast exams, mammograms, pelvic exams, colonoscopy, etc. Referrals: Josefina Neal MD [[facility] STAFF PHYSICIAN] - (follow up in 2 to 4 weeks) Isabel Kaminski NP [Primary Care Provider] - (set follow up in the next week) Activity:: Activity as Tolerated Equipment/Supplies:: No Equipment Needed Diet:: Normal Diet Discharge Orders Discharge Orders: Discharge Order (Routine); Ordered 07/07/22 Ordered By: Jaison Monk DS: Summary Time Spent with Patient providing and/or coordinating discharge services: Greater than 30 minutes Specific discharge activities: Interview/exam of patient; review of discharge instructions, completion of prescriptions/discharge instructions; discussion w/ nursing and CM; documentation of hospital visit Status at Discharge Functional status at discharge: independent ambulation Overall status at discharge: patient is progressing back to baseline Mental Status: mental status grossly normal Speech and Movement: speech and movement normal Mood: congruent mood Affect: normal affect Exam Narrative Exam Narrative: Obese pleasant female who is alert and oriented person place time circumstance but not in her chair talking with her mother. She is not using accessory respiratory muscles no acute respiratory distress. Lungs are clear to auscultation Heart is regular rate and rhythm no appreciable murmur rub or gallop Extremities obese nontender to palpation no pitting edema no cyanosis Psych Mental Status: mental status grossly normal Speech and Movement: speech and movement normal Mood: congruent mood Affect: normal affect DS: Data Vitals/I&O Vitals and I&O: Vital Signs Temperature 36.9 C 07/07/22 07:17 Temperature Source Tympanic 07/07/22 07:17 Pulse 90 07/07/22 07:17 Pulse Rhythm Regular 07/07/22 07:19 Respiratory Rate 18 07/07/22 07:17 Respiratory Effort 07/07/22 07:19 Respiratory Depth Normal 07/07/22 07:19 Respiratory Pattern Normal 07/07/22 07:19 Blood Pressure 114/71 07/07/22 07:17 Pulse Oximetry 95 07/07/22 07:17 Oxygen Delivery Method Room Air 07/07/22 07:17 Oxygen Flow Rate 0 07/07/22 07:17 Pain Level 3 07/07/22 09:07 Comment 07/06/22 11:17 Intake & Output 07/06/22 07/06/22 07/07/22 11:59 23:59 11:59 Intake Total 2130 / 2920 790 / 2920 Output Total 700 / 1200 1650 / 1650 Balance 2130 / 1720 90 / 1720 -1650 / -1650 Weight 181.437 kg Intake: IV 1100 / 1100 Oral 1030 / 1820 790 / 1820 Output: Urine 700 / 1200 1650 / 1650 Other: Urine Color Light Marcela Yellow Urine Appearance Clear Clear Urine Odor None Normal Comment pT stated that she voided. pT is able to get up and use the toilet independently. Voiding Methods Toilet Toilet Toilet Data Completed and Pending Completed studies during hospitalization [Text1]: Echocardiogram 07/06/22 Conclusion Technically limited study Mild concentric left ventricular hypertrophy.? Left ventricular systolic function and wall motion appears normal.? EF is 58% Right ventricle is borderline dilated.? Right ventricular systolic function appears normal Both atria are normal in size There is no structural or hemodynamically significant valvular disease Estimated right ventricular systolic pressure is 34 mmHg Bilateral lower extremities venous duplex study: 07/06/22 FINDINGS: There is no evidence of intraluminal thrombus and there is normal compression and augmentation demonstrated within the common femoral veins, femoral veins, and popliteal veins of both lower extremities. In the calves the interrogated veins also exhibit normal compression/ aug mentation properties. The greater saphenous veins also appear patent as do the saphenofemoral junctions bilaterally. CTA chest 07/06/22: FINDINGS: CHEST: PULMONARY ARTERIES: There are extensive bilateral pulmonary emboli involving all lobes both lungs.? No central saddle embolus evident.? No evidence of pulmonary infarction but there is a small left pleural effusion. LUNGS: There are no infiltrates nor evidence of pulmonary infarction.. Small left pleural effusion.? Incidentally noted is an accessory azygos lobe on the right side MEDIASTINUM: There is no hilar nor mediastinal adenopathy. Visualized thyroid unremarkable. CARDIAC: Heart size is upper normal.? There is no pericardial effusion.Caliber of the thoracic aorta is within normal limits. No evidence of aortic dissection.? There is no significant shift of the interventricular septum. PARTIALLY VISUALIZED UPPERMOST ABDOMEN: No obvious findings OSSEOUS: No significant osseous lesions.. IMPRESSION: 1. Extensive bilateral pulmonary emboli involving all lobes of both lungs..No obvious pulmonary infarct although there is a small left pleural effusion noted and mild increased markings in the posterior basal segment of the left lower lobe.? These left lower lobe findings may indicate early infarct and/or concomitant infectious process. 2. No obvious right heart strain. IMPRESSION: 1.? No ultrasound evidence of DVT in either lower extremity. Pending studies at discharge: ADELA titer, antidouble-stranded DNA antibody, Antithrombin complex antibody, Antithrombin III activity, functional Antithrombin III level, factor V Leiden mutation, DHEA level, pelvic and transvaginal ultrasound Labs on day of discharge: Labs from last 24 hours 07/06/22 07/06/22 07/06/22 12:00 12:00 12:00 Func Antithrombin III Antithrombin III Activ Pending Factor V Leiden Mutat Pending Factor V Leiden Interp Pending Fact V Leiden Review By Pending TSH Total Testosterone Pending DHEA ng/ml Pending ADELA Titer Pending ADELA Titer 2 Pending ADELA Titer 3 Pending ADELA Interpretation Pending Double Strand DNA Ab Thrombin-AT Complex Ab Pending Prothrombin [id number] Mut Pending Prothrombin Mut Interp Pending Prothromb Reviewed By Pending 07/06/22 07/06/22 12:00 04:20 Func Antithrombin III Pending Antithrombin III Activ Factor V Leiden Mutat Factor V Leiden Interp Fact V Leiden Review By TSH 2.69 Total Testosterone DHEA ng/ml ADELA Titer ADELA Titer 2 ADELA Titer 3 ADELA Interpretation Double Strand DNA Ab Pending Thrombin-AT Complex Ab Prothrombin [id number] Mut Prothrombin Mut Interp Prothromb Reviewed By [facility] All Active Problems Pulmonary hypertension (Acute) Discharge planning issues (Acute) On deep vein thrombosis (DVT) prophylaxis (Acute) Pulmonary infarct (Acute) Amenorrhea (Acute) Bilateral pulmonary embolism (Acute) Medical History ADHD Anxiety Depression Surgical History History of knee surgery Social History Smoking/Tobacco Use Status: Never Smoking risk assessment performed?: Yes Alcohol Intake: never Drug use: Never Substance use type: does not use Do you feel safe at home: Yes Time Spent with Patient Time Spent with Patient: <45 minutes Time was spent: preparing to see the patient(eg.review tests), ordering medications,tests, procedures, referring, communicating with other health toddler caregiver, indepentently interpreting results, counseling the patient and care coordination
[2022-07-07 12:13] LABS: Antithrombin 3, Funct. 89 % (85-125)
--- NOTE | 2022-07-07 12:16 | PDOC.CMDIS ---
- If Service Date Differs Date of service: 07/07/22 Time of Service: 12:16 LACE Index Scoring Tool - Questions: Length of Stay (in days): 1 Acuity (Admit via E.D.?): Yes E.D. Visits: 1 - Answers: Total Score: 5 Risk of Readmission: Low Risk Care Management Discharge Reason for Hospitalization: Bilateral pulmonary embolism Discharge Plan: Pricilla is discharged home via private vehicle with family. Pricilla will follow up with community providers and discharge plan of care as prescribed, New RX for Eliquis is transmitted to [facility] in [place], coverage is verified. No new services are ordered. Pricilla will follow up with Dr. Neal and PCP at [facility]. Pricilla may return to work on 07/12/[address] Monk. Return to work letter is written. Patient/Family Education Needs: Review discharge instructions, limitations, medications and plan to follow up with community providers. Discuss ask me three and goals of self care.
[2022-07-07 12:18] LABS: Antithrombin Activity, Plasma 88 % (80 - 130)
[2022-07-07 13:57] LABS: ANA Interpretation Negative (Negative)
[2022-07-08 17:15] LABS: Dehydroepiandrosterone (DHEA) 5.7 ng/mL (<13)
[2022-07-09 14:44] LABS: Testosterone, Total 30 ng/dL (8-60)
[2022-07-09 15:51] LABS: dsDNA Ab, IgG <12.3 IU/mL (<30.0)
[2022-07-12 09:13] LABS: Prothrombin G20210A Mutation Negative (Negative)
[2022-07-13 09:07] LABS: Factor V Leiden(R506Q) Mut Negative (Negative)
[2022-08-24 16:11] LABS: Thrombin-Antithrombin Complex 3.4 ng/mL
== END 2022-07-07 13:49 | disposition home or self-care (01) ==
LOC: ER 06:49 → MS 08:08
PROVIDERS: Internal Medicine; Student in an Organized Health Care Education/Training Program; Admitting Provider General Practice; Emergency Provider Physician Assistant; PCP Nurse Practitioner; Visit Provider General Practice
DX: I26.99 Other pulmonary embolism without acute cor pulmonale (principal); E66.01 Morbid (severe) obesity due to excess calories; Z68.44 Body mass index [BMI] 60.0-69.9, adult; R00.0 Tachycardia, unspecified; M54.9 Dorsalgia, unspecified; R07.81 Pleurodynia; F90.9 Attention-deficit hyperactivity disorder, unspecified type; F41.9 Anxiety disorder, unspecified; F32.A Depression, unspecified; N91.2 Amenorrhea, unspecified; I27.20 Pulmonary hypertension, unspecified; Z20.822 Contact with and (suspected) exposure to COVID-19; Z84.89 Family history of other specified conditions
CPT/HCPCS: 36415; 71275; 80053; 81025; 81240; 81241; 83520; 83690; 84403; 85300; 87635; 93005; 96361; 96365; 96372; 99285; 76830; 76856; 82626; 83735; 83880; 84443; 84484; 84703; 85025; 85610; 85730; 86038; 86225; 93010; 93306; 93970; 99222; 99239; G0378; J0131; J1650; J3490; Q9967

== ENCOUNTER 2022-10-14 16:08 | Outpatient (REF) | payer BC, MEDICAID, SELFPAY ==
[2022-10-16 14:35] LABS: Chlamydia Result Negative (Negative); GC Result Negative (Negative)
== END 2022-10-14 16:09 | disposition home or self-care (01) ==
LOC: LBN 16:08
PROVIDERS: Visit Provider Obstetrics & Gynecology
DX: Z11.3 Encounter for screening for infections with a predominantly sexual mode of transmission (principal)
CPT/HCPCS: 87491; 87591

== ENCOUNTER 2022-10-15 01:28 | Outpatient (CLI) | payer BC, MEDICAID, SELFPAY ==
[2022-10-18 10:35] LABS: HIV-1/2 Ag & Ab Screen Negative (Negative)
== END 2022-10-15 01:29 | disposition home or self-care (01) ==
LOC: LBO 01:28
PROVIDERS: Visit Provider Obstetrics & Gynecology
DX: N93.8 Other specified abnormal uterine and vaginal bleeding (principal); E66.01 Morbid (severe) obesity due to excess calories; Z11.3 Encounter for screening for infections with a predominantly sexual mode of transmission; Z11.4 Encounter for screening for human immunodeficiency virus [HIV]
CPT/HCPCS: 36415; 87389

== ENCOUNTER 2022-11-02 16:15 | Outpatient (REF) | payer BC, MEDICAID, SELFPAY ==
[2022-11-04 13:44] LABS: Chlamydia Result Negative (Negative); GC Result Negative (Negative)
== END 2022-11-02 16:16 | disposition home or self-care (01) ==
LOC: LBN 16:15
PROVIDERS: Visit Provider Obstetrics & Gynecology
DX: Z11.3 Encounter for screening for infections with a predominantly sexual mode of transmission (principal)
CPT/HCPCS: 87491; 87591

== ENCOUNTER 2022-11-04 01:27 | Outpatient (CLI) | payer BC, MEDICAID, SELFPAY ==
--- NOTE | 2022-11-04 08:19 | DI.CT_ITS ---
Exam(s) CT CHEST PE CTA EXAM: CT CHEST PE CTA CLINICAL HISTORY: f/u infarct, patient with continued chest pain,i26.99. TECHNIQUE: Imaging Protocol: Axial CT angiography was performed with multi-slice acquisition and mu lti-planar and/or 3D reconstructions. CONTRAST MATERIAL: Intravenous: Omnipaque 350 contrast volume:100 mL COMPARISON: CT CT CHEST PE CTA from 07/06/2022 FINDINGS: Tracheobronchial tree: Patent where visualized. Pulmonary parenchyma: There is a very small area of consolidation in the periphery of the medial aspe ct of the left lower lobe. The lungs are otherwise clear. No architectural distortion. Note is made of an azygos lobe. Pulmonary Arteries: No evidence of filling defect to suggest pulmonary emboli. Mediastinum and Nadia: No dominant adenopathy or fluid collection. The esophagus is unremarkable. Visualized thyroid gland: Unremarkable. Pleura: No effusion or pneumothorax. Heart: The heart is not dilated. No coronary artery calcifications are seen. No pericardial effusion. Aorta: Thoracic aorta non-dilated. Upper abdomen: There is layering debris seen in the gallbladder which may represent sludge or noncal cified stones. Soft tissues: Unremarkable. Bones: Within normal limits for the patient's age. IMPRESSION: 1. No pulmonary emboli are identified at this time. 2. Very small area of consolidation in the periphery of the medial aspect of the left lower lobe. Th e lungs are otherwise clear. 3. Sludge or noncalcified stones layering in the gallbladder. RADIATION DOSE DELIVERED: 544.09mGy.cm Total DLP DATA REPOSITORY: All CT scans at this facility are submitted to the National Radiology Data Registry (NRDR) Dose Index Registry (DIR) with the [employer] (ACR). RADIATION OPTIMIZATION: All CT scans at this facility use at least one of these dose optimization te chniques: automated exposure control; mA and/or kV adjustment per patient size (includes targeted exa ms where dose is matched to clinical indication); or iterative reconstruction.
[2022-11-04] MEDS: Omnipaque 350 MG/ML 100 ML BTL IJ (15:05)
[2022-11-04] MEDS: Normal Saline - Diluent 50 ML VIAL IJ (15:05)
[2022-11-04] MEDS: Normal Saline Flush 10 ML SYR IVP (15:06)
--- NOTE | 2022-11-04 15:15 | DI.US_ITS ---
APPROVED REPORT EXAM: Comprehensive 2D, Doppler, and color-flow Echocardiogram Patient Location: Out-Patient Machine Silver Stripper: Mir Kim RDMS, RVT Indications: f/u pap's pulmonary htn Limited follow up exam Other Information Study Quality: Poor. Technically limited study due to body habitus. Conclusion Technically very limited and suboptimal study Left ventricular systolic function appears normal Right ventricle is borderline dilated. Right ventricular apex may be hypocontractile Trace tricuspid regurgitation is seen, unable to calculate right ventricular systolic pressure Wall motion Left Ventricle The left ventricle is normal size. The overall left ventricular systolic function appears normal. The re is normal left ventricular wall thickness. LVEF is 57%. Right Ventricle Right ventricle is borderline in size Right ventricular apex may be hypocontractile Tricuspid Valve The tricuspid valve is normal in structure. There is no tricuspid valve stenosis. Trace tricuspid re gurgitation. Unable to assess PA pressure. Great Vessels IVC is normal in size and collapses >50% with inspiration. 2D Dimensions IVSD d PLAX 1.11 cm F: 0.6-1.0 LV Vol A4C d MOD 142.4 mL LVPW d PLAX 1.12 cm F: 0.6 - 1.0 LV EF A4C MOD 55.1 % LVID d PLAX 4.29 cm F: 3.8 - 5.2 LVDs 2.95 cm F: 2.2 - 3.5 LV EF Teichholz 57.9 % LV Volume Index 53.04 mL/m2 F: 29 - 61 FS 30.20 %
== END 2022-11-04 01:47 ==
LOC: DI 01:27
PROVIDERS: Visit Provider Student in an Organized Health Care Education/Training Program
DX: I26.99 Other pulmonary embolism without acute cor pulmonale
CPT/HCPCS: 71275; 93308; J3490

== ENCOUNTER 2024-08-21 16:49 | Emergency (ER) | payer MEDICAID, SELFPAY ==
[2024-08-21 16:52] VITALS: BP 145/85; PULSE 114; RESP 20; TEMP 36.8; O2SAT 97
--- NOTE | 2024-08-21 17:09 | DI.RAD_ITS ---
Exam(s) XR KNEE RT 4V AP,LAT,ABRAHAM,PAT EXAM: XR KNEE RT 4V AP,LAT,ABRAHAM,PAT CLINICAL HISTORY: pain and crunching w/ mvmt after injury. TECHNIQUE: 2D digital imaging was performed. Three views. COMPARISON: CR LEFT KNEE LIMITED 1 OR 2 VIEWS from 08/11/2012 FINDINGS: The exam is limited by patient body habitus. The BONES: Questionable lucency through the medial tibial plateau near the tibial spine on one view. No bony destructive lesion is seen. JOINTS: The knee is normally aligned. A hemarthrosis is seen. SOFT TISSUE: Normal. IMPRESSION: Limited exam. Hemarthrosis. Question of medial tibial plateau fracture. CT recommended. DATA REPOSITORY: RADIATION DOSE DELIVERED:
--- NOTE | 2024-08-21 17:13 | W.ED.GENAD ---
Discharge Plan Disposition Patient Disposition: Home Condition: Good Discharge Details Clinical Impression: Knee pain, right Primary Care Provider: Unknown,Unknown ED Provider: Brandie Horn Home Meds and New Rx's Prescriptions: No Action spironolactone 25 mg tablet 25 mg PO BID Saline Mist 0.65 % aerosol,spray 1 spray intranasal ONCE Qty: 45 5RF Rx Instructions: One spray per nostril every night fluticasone propionate [Flonase Allergy Relief] 50 mcg/actuation spray,suspension 1 spray intranasal DAILY Qty: 16 6RF Rx Instructions: administer into each nostril Mirena 21 mcg/24 hours (8 yrs) 52 mg intrauterine device 1 device intrauterine ONCE Rx Instructions: as a single dose Eliquis 2.5 mg tablet 2.5 mg PO BID Qty: 60 12RF Rx Instructions: 2.5 mg orally twice a day; lamotrigine 100 mg tablet 100 mg PO DAILY Patient Comments: take 1 tablet by mouth once daily bupropion HCl 300 mg tablet extended release 24 hr 300 mg PO DAILY Patient Comments: take 1 tablet by mouth once daily pantoprazole 20 mg tablet,delayed release (DR/EC) 20 mg PO DAILY Patient Comments: take 1 tablet by mouth once daily lisdexamfetamine [Vyvanse] 60 mg capsule 60 mg PO DAILY Patient Comments: take 1 capsule by mouth every morning propranolol 20 mg tablet 20 mg DAILY Patient Comments: take 1 tablet by mouth daily diazepam 2 mg tablet 2 mg PO DAILY PRN PRN Patient Comments: take 1 tablet by mouth once daily if needed FOR PANIC Discharge Instructions Additional Instructions: Please follow-up with [facility] orthopedics. A referral has been provided. There is no sign of fracture on CT. Use the knee immobilizer when you are out of bed, crutches to maintain nonweightbearing status. Tylenol 650 mg every 4-6 hours and ibuprofen 600 mg every 6-8 hours can be used for discomfort. Elevate knee above heart level to help with swelling. Ice applied for 15 to 20 minutes may also help with discomfort. Return to emergency care if you develop lower leg numbness/color change, weakness, new severe leg pain, or if you are very worried and need to be rechecked again immediately Referrals: [facility] [Provider Group] HPI General Date/Time Provider Initiated Documentation: 08/21/24 17:09. HPI Narrative: Pricilla is a 29 year old female who presents to the emergency department today for evaluation of right knee pain. She reports that she was squeezing through a narrow space on uneven grate when all of a sudden she felt a crunching sensation in her knee. She has had pain to her right knee since then, worsened with ambulation or flexion. There is a crunching sensation as well. No distal numbness/tingling or weakness to the foot. No injury to this knee previously. She is on Eliquis for history of PE. Has not taken any meds prior to arrival. No other injuries reported. Past medical history is significant for [] Physical exam remarkable for tenderness to palpation all over, no overlying abrasion/lacerations or ecchymosis, no obvious swelling. She does have limited active range of motion with flexion, does have improved passive range of motion. Sensation grossly intact distally, 5/5 muscle strength to foot. D/dx includes but is not limited to: Fracture, sprain, ligamentous injury such as ACL/MCL tear, other soft tissue injury I independently interpreted the following tests: Right knee x-ray, no obvious fractures noted. Radiologist did note question of medial tibial plateau fracture, CT ordered for further evaluation. No fracture noted on CT. While in the emergency department, Pricilla received Tylenol for discomfort and knee immobilizer with crutches. Orthopedics referral provided. Reviewed discharge instructions with patient, including symptomatic management, importance of follow-up with orthopedics, and red flags indicating need for return to emergency care Related Data Home Medications ?Medication ?Instructions ?Recorded ?Confirmed bupropion HCl 300 mg 24 hr tablet, 300 mg PO DAILY 07/06/22 08/21/24 extended release diazepam 2 mg tablet 2 mg PO DAILY PRN PRN 07/06/22 08/21/24 lamotrigine 100 mg tablet 100 mg PO DAILY 07/06/22 08/21/24 lisdexamfetamine 60 mg capsule 60 mg PO DAILY 07/06/22 08/21/24 (Vyvanse) pantoprazole 20 mg tablet,delayed 20 mg PO DAILY 07/06/22 08/21/24 release propranolol 20 mg tablet 20 mg DAILY 07/06/22 12/16/22 fluticasone propionate 50 1 spray intranasal DAILY #16 grams 09/17/22 08/21/24 mcg/actuation nasal spray,suspension (Flonase Allergy Relief) sodium chloride 0.65 % nasal spray 1 spray intranasal ONCE #45 mL 09/17/22 08/21/24 aerosol (Saline Mist) spironolactone 25 mg tablet 25 mg PO BID 09/17/22 08/21/24 levonorgestrel 21 mcg/24 hr (up to 1 device intrauterine ONCE 12/15/22 08/21/24 8 years) 52 mg intrauterine device (Mirena) apixaban 2.5 mg tablet (Eliquis) 2.5 mg PO BID #60 tabs 08/16/24 08/21/24 Previous Rx's ?Medication ?Instructions ?Recorded fluticasone propionate 50 1 spray intranasal DAILY #16 grams 09/17/22 mcg/actuation nasal spray,suspension (Flonase Allergy Relief) sodium chloride 0.65 % nasal spray 1 spray intranasal ONCE #45 mL 09/17/22 aerosol (Saline Mist) apixaban 2.5 mg tablet (Eliquis) 2.5 mg PO BID #60 tabs 08/16/24 Allergies Allergy/AdvReac Type Severity Reaction Status Date / Time amoxicillin Allergy Intermediate Skin Rash Unverified 08/21/24 16:56 General Stated Complaint: Orthopedic AMANDA: 4 Review of Systems Narrative: see HPI Exam Const General: cooperative, healthy appearing, comfortable, no acute distress, well developed and well groomed Nutritional Appearance: overweight Orientation: alert and oriented x3 Resp Effort & Inspection: normal respiratory effort and able to speak in complete sentences Skin General skin exam: no rashes or lesions noted Trauma: no lacerations or abrasions Neuro General: tone normal, moves all extremities and no focal motor deficits Motor: muscle tone normal throughout and strength 5/5 throughout Sensory Exam: no sensory deficits noted Extrem Left lower extremity: normal capillary refill and knee Details: tenderness, swelling and abnormal ROM (decreased active flexion, increased flexion with passive ROM) Details: held in an abnormal fashion Details: in extension; no lacerations, no ecchymosis, no crepitus, no foreign bodies, no penetrating wound, no deformity and no unusual warmth Course Vital Signs Vital signs: Vital Signs Temperature 36.8 C 08/21/24 16:52 Pulse 114 H 08/21/24 16:52 Respiratory Rate 20 08/21/24 16:52 Blood Pressure 145/85 H 08/21/24 16:52 Pulse Oximetry 97 08/21/24 16:52 Temperature 36.8 C 08/21/24 16:52 Pulse 114 H 08/21/24 16:52 Respiratory Rate 20 08/21/24 16:52 Blood Pressure 145/85 H 08/21/24 16:52 Blood Pressure Position Sitting 08/21/24 16:52 Pulse Oximetry 97 08/21/24 16:52 Oxygen Delivery Method Room Air 08/21/24 16:52 Oxygen Flow Rate 0 08/21/24 16:52 Medical Decision Making Imaging Data Radiologic Study: Radiologist's impression: Exam(s) XR KNEE RT 4V AP,LAT,ABRAHAM,PAT EXAM: XR KNEE RT 4V AP,LAT,ABRAHAM,PAT CLINICAL HISTORY: pain and crunching w/ mvmt after injury. TECHNIQUE: 2D digital imaging was performed. Three views. COMPARISON: CR LEFT KNEE LIMITED 1 OR 2 VIEWS from 08/11/2012 FINDINGS: The exam is limited by patient body habitus. The BONES: Questionable lucency through the medial tibial plateau near the tibial spine on one view. No bony destructive lesion is seen. JOINTS: The knee is normally aligned. A hemarthrosis is seen. SOFT TISSUE: Normal. IMPRESSION: Limited exam. Hemarthrosis. Question of medial tibial plateau fracture. CT recommended. Radiologic Study #2: Radiologist's impression: PROCEDURE INFORMATION: Exam: CT Right Lower Extremity, Knee Exam date and time: 08/21/2024 7:14 PM Age: 29 years old Clinical indication: Other: Evaluate ? tibial plateau FX TECHNIQUE: Imaging protocol: CT of the right lower extremity without contrast was performed. Exam focused on the knee. COMPARISON: CR XR KNEE RT 4V AP,LAT,ABRAHAM,PAT 08/21/2024 5:57 PM FINDINGS: Bones/joints: No acute fracture or subluxation. Articular cortical surfaces appear smooth. Small joint effusion is present with attenuation ranging from 30-35 HU. Soft tissues: Normal. IMPRESSION: 1. No acute fracture or subluxation. 2. Small hemarthrosis. Quality:SDOH Health Related Social Needs: No Data to Display PFSH All Active Problems (Updated 08/21/24 @ 20:27 by Brandie Washington) Knee pain, right (Acute) IUD surveillance (Acute) Obesities, morbid (Acute) DUB (dysfunctional uterine bleeding) (Acute) Routine screening for STI (sexually transmitted infection) (Acute) Rhinitis (Acute) Pulmonary hypertension (Acute) Pulmonary infarct (Acute) Amenorrhea (Acute) Bilateral pulmonary embolism (Acute) Medical History ADHD Anxiety Depression Surgical History History of knee surgery Social History Smoking/Tobacco Use Status: Never Smoking risk assessment performed?: Yes Alcohol Intake: never Drug use: Never Substance use type: does not use Do you feel safe at home: Yes History History 0 Para Hx # Term Pregnancies Multiple births Hx # Pregnancies Ectopic pregnancies AB induced Hx Number of Living Children AB spontaneous
[2024-08-21] MEDS: Acetaminophen 325 MG TAB 650 MG PO (17:24)
--- NOTE | 2024-08-21 18:45 | DI.CT_ITS ---
Exam(s) CT LOWER EXTREMITY RT WO EXAM: CT LOWER EXTREMITY RT WO CLINICAL HISTORY: evaluate ? tibial plateau fx. TECHNIQUE: Imaging Protocol: Axial computed tomography images with coronal and sagittal reformatted images were created and reviewed. CONTRAST MATERIAL: Intravenous: Omnipaque 350 Contrast volume:structured data in ml Contrast route:I V - Oral: yes / no COMPARISON: CR XR KNEE RT 4V AP,LAT,ABRAHAM,PAT from 08/21/2024 FINDINGS: There is a knee joint effusion evident. OSSEOUS: There are no fractures evident in the tibial plateau, as per request. There is no evidence of Segond fragment. Fibular head and neck are intact. The patella appears slightly deviated lateral ly. No evidence of obvious patellar fracture. However, there is slight indistinctness of the medial patellar retinaculum. IMPRESSION: No evidence of tibial plateau fracture nor other obvious fractures. Slight lateral deviation of the patella and indistinctness of the medial patellar retinaculum. Corre lation with any history of lateral patellar dislocation recommended. If clinically indicated follow- up MRI can be performed for added sensitivity/specificity RADIATION DOSE DELIVERED: 224.37mGy.cm Total DLP DATA REPOSITORY: All CT scans at this facility are submitted to the National Radiology Data Registry (NRDR) Dose Index Registry (DIR) with the [employer] (ACR). RADIATION OPTIMIZATION: All CT scans at this facility use at least one of these dose optimization te chniques: automated exposure control; mA and/or kV adjustment per patient size (includes targeted exa ms where dose is matched to clinical indication); or iterative reconstruction.
--- NOTE | 2024-08-21 20:18 | DI.VRAD_ITS ---
PROCEDURE INFORMATION: Exam: CT Right Lower Extremity, Knee Exam date and time: 08/21/2024 7:14 PM Age: 29 years old Clinical indication: Other: Evaluate ? tibial plateau FX TECHNIQUE: Imaging protocol: CT of the right lower extremity without contrast was performed. Exam focused on the knee. COMPARISON: CR XR KNEE RT 4V AP,LAT,ABRAHAM,PAT 08/21/2024 5:57 PM FINDINGS: Bones/joints: No acute fracture or subluxation. Articular cortical surfaces appear smooth. Small joint effusion is present with attenuation ranging from 30-35 HU. Soft tissues: Normal. IMPRESSION: 1. No acute fracture or subluxation. 2. Small hemarthrosis. Dictated and Authenticated by: Ronald Pino MD. Orderin Mariama Diego MD
[2024-08-21 20:20] VITALS: BP 116/79; PULSE 93; RESP 16; TEMP 36.6; O2SAT 100
== END 2024-08-21 20:33 | disposition home or self-care (01) ==
PROVIDERS: Emergency Provider Nurse Practitioner Family
DX: M25.561 Pain in right knee (principal); M25.061 Hemarthrosis, right knee
CPT/HCPCS: 99285; 73564; 73700; 99284

== ENCOUNTER 2024-09-25 12:23 | Outpatient (CLI) | payer MEDICAID, SELFPAY ==
--- NOTE | 2024-09-25 11:15 | DI.MRI_ITS ---
Exam(s) MR LOWER JOINT RT WO EXAM: MR LOWER JOINT RT WO CLINICAL HISTORY: ? ACL, R KNEE PAIN S83.511ASPRAIN RT KNEE. TECHNIQUE: Multiplanar multisequence MRI was performed. COMPARISON: CR XR KNEE RT 4V AP,LAT,ABRAHAM,PAT from 08/21/[address] LOWER EXTREMITY RT WO from 08/21/2024 FINDINGS: BONES: There is edema in the posterior aspect of the tibial plateaus consistent with bone contusion. Minimal edema in the medial aspect of the medial femoral condyle.. Small simple bone cyst in the distal femoral metaphysis. JOINTS: No a moderate-sized joint effusion is present. Articular cartilage: Patellofemoral joint: Articular cartilage is unremarkable. Medial femoral tibial joint: Articular cartilage is unremarkable. Lateral femoral tibial joint: Articular are focal area of thinning in the posterior lateral femoral condyle which does not extend down to bone. LIGAMENTS/TENDONS: Anterior Cruciate: Marked thickening disruption consistent with a full-thickness tear. Posterior Cruciate: Unremarkable. Medial Collateral:Unremarkable. Lateral Collateral ligament complex: Unremarkable. Extensor mechanism: Unremarkable. Medial retinaculum: Unremarkable. Lateral retinaculum: Unremarkable. Popliteus: Unremarkable. MENISCI: The medial meniscus shows a longitudinal tear of the posterior horn. The lateral meniscus is unremarkable. MUSCLES: Unremarkable. SOFT TISSUES: Unremarkable. IMPRESSION: Full-thickness tear of the anterior cruciate ligament. Longitudinally oriented tear of the posterior horn of the medial meniscus. Contusions of the posterior tibial plateaus and medial femoral condyle. Focal area of cartilage thinning of the lateral femoral condyle. No displaced cartilage fragment see n. DATA REPOSITORY:
== END 2024-09-25 12:43 ==
LOC: DI 12:23
PROVIDERS: Visit Provider Student in an Organized Health Care Education/Training Program
DX: S83.511A Sprain of anterior cruciate ligament of right knee, initial encounter (principal); X58.XXXA Exposure to other specified factors, initial encounter
CPT/HCPCS: 73721